=== PATIENT | female | born 1970 | race Caucasian/White ===

== ENCOUNTER 2021-05-25 06:14 | Outpatient (REF) | payer OTHER, SELFPAY ==
[2021-05-25 06:23] LABS: MANUAL DIFF FLAG NO
[2021-05-25 07:50] LABS: Basophils Absolute Auto 0.1 X10*3/uL (0.0-0.2); Basophils Percent Auto 0.6 % (0-2); Eosinophils Absolute Auto 0.1 X10*3/uL (0.0-0.4); Eosinophils Percent Auto 1.2 % (0-4); Hematocrit 44.7 % (37.0-47.0); Hemoglobin 14.3 g/dl (12.0-16.0); Imm Gran Abs Auto 0.07 X10*3/uL (0.00-0.03); Imm Gran Pct Auto 0.8 % (0.0-0.4); Lymphocytes Absolute Auto 3.8 X10*3/uL (1.2-4.9); Lymphocytes Percent Auto 42.4 % (20-40); Mean Corpuscular Hemoglobin 29.1 pg (27.0-33.0); Mean Corpuscular Volume 90.9 fL (80.0-98.0); Mean Platelet Volume 9.8 fL (9.4-12.3); Monocytes Absolute Auto 0.7 X10*3/uL (0.1-1.2); Monocytes Percent Auto 7.3 % (2-11); Neutrophils Absolute Auto 4.3 x10*3/uL (2.0-8.3); Neutrophils Percent Auto 47.7 % (45-73); Platelet Count 320 X10*3/uL (160-400); Red Blood Count 4.92 X10*6/uL (4.20-5.50); Red Cell Distribution Width 13.6 % (11.0-16.0); White Blood Count 8.9 X10*3/uL (4.8-10.8)
[2021-05-25 08:07] LABS: Troponin-I High Sensitivity < 3.5 ng/L (<3.5-17.0)
[2021-05-25 08:34] LABS: Alanine Aminotransferase 33 U/L (0-31); Albumin Level 4.2 g/dL (3.5-5.0); Alkaline Phosphatase 66 U/L (39-117); Anion Gap 14 (12-20); Aspartate Amino Transferase 17 U/L (5-31); Bilirubin Total 0.7 mg/dL (0.0-1.0); Blood Urea Nitrogen 14 mg/dL (9-16); C Reactive Protein 0.38 mg/dL (< or = 0.50); Calcium 9.5 mg/dL (8.4-10.2); Carbon Dioxide 28 mmol/L (22-29); Chloride 104 mmol/L (96-108); Cholesterol 242 mg/dL; Estimated Glomerular Filt Rate > 60; Glucose Fasting 88 mg/dL (60-99); HDL Cholesterol 42 mg/dL; LDL Cholesterol Calculated 163 mg/dl; Potassium 4.4 mmol/L (3.3-5.1); Sodium 142 mmol/L (135-145); Triglycerides 186 mg/dL
[2021-05-25 08:45] LABS: TSH reflex Free T4 3.68 uIU/mL (0.32-4.0); Vitamin D 25-OH Total 27.8 ng/mL (>30)
[2021-05-25 08:55] LABS: Erythrocyte Sedimentation Rate 16 MM/HR (0-20)
[2021-05-25 09:13] LABS: Appearance Urine HAZY; Color Urine YELLOW; Glucose Urine UA NEG (NEG); Leukocyte Esterase Urine 1+ (NEG); Nitrite Urine NEG (NEG); Specific Gravity - Urine 1.025 (1.005-1.025); UACC Culture Trigger YES; Urine Blood NEG (NEG); Urine Ketones NEG (NEG); Urine Protein NEG (NEG-TRACE)
[2021-05-25 09:19] LABS: Rheumatoid Factor < 15.0 IU/mL (<15.0)
[2021-05-25 09:25] LABS: Bacteria Urine 2+ /LPF; RBC Urine 0-2 /HPF (0); Squamous Epithelial Cell Urine 3+ /LPF
[2021-05-26 13:51] LABS: Anti Nuclear Antibody Screen NEGATIVE (NEGATIVE)
[2021-05-28 07:52] LABS: CK-BB None Detected (None Detected); CK-MB 0 % (<5); CK-MM 100 % (95-100); Creatine Kinase,Total,Serum 113 U/L (29-143)
== END 2021-05-25 06:15 | disposition home or self-care (01) ==
LOC: HO.LAB 06:14
PROVIDERS: PCP Internal Medicine; Visit Provider Internal Medicine
DX: Z00.00 Encounter for general adult medical examination without abnormal findings (principal); R07.9 Chest pain, unspecified; M25.50 Pain in unspecified joint; E55.9 Vitamin D deficiency, unspecified; M79.7 Fibromyalgia
CPT/HCPCS: 36415; 80053; 80061; 81001; 81003; 82306; 82552; 84443; 84484; 85025; 85652; 86038; 86039; 86140; 86431; 87086

== ENCOUNTER → 2021-08-30 08:56 | Outpatient (BNVA) | payer OTHER, SELFPAY | PROVIDERS: PCP Internal Medicine; Referring Provider Internal Medicine; Visit Provider Nurse Practitioner Family | DX: R06.83 Snoring (principal); R40.0 Somnolence | CPT/HCPCS: 99202 ==

== ENCOUNTER → 2021-09-21 14:30 | Outpatient (REF) | payer OTHER, SELFPAY | LOC: HO.SL 14:30 | PROVIDERS: PCP Internal Medicine; Visit Provider Nurse Practitioner Family | DX: R06.83 Snoring (principal); R40.0 Somnolence | CPT/HCPCS: 95806 ==

== ENCOUNTER → 2021-11-22 08:24 | Outpatient (BNVA) | payer OTHER, SELFPAY | PROVIDERS: PCP Internal Medicine; Visit Provider Nurse Practitioner Family | DX: G47.9 Sleep disorder, unspecified (principal); R40.0 Somnolence; R06.83 Snoring | CPT/HCPCS: 99212 ==

== ENCOUNTER → 2022-05-30 20:43 | Outpatient (REF) | payer OTHER, SELFPAY | LOC: HO.SL 20:43 | PROVIDERS: Visit Provider Nurse Practitioner Family | DX: G47.33 Obstructive sleep apnea (adult) (pediatric) (principal); R40.0 Somnolence; R06.83 Snoring; G47.61 Periodic limb movement disorder | CPT/HCPCS: 95810 ==

== ENCOUNTER 2022-06-15 08:37 | Outpatient (REF) | payer OTHER, SELFPAY ==
[2022-06-15 08:57] LABS: MANUAL DIFF FLAG NO
[2022-06-15 09:23] LABS: Basophils Percent Auto 0.5 % (0-2); Eosinophils Absolute Auto 0.1 X10*3/uL (0.0-0.4); Eosinophils Percent Auto 1.2 % (0-4); Hematocrit 43.9 % (37.0-47.0); Hemoglobin 14.6 g/dl (12.0-16.0); Imm Gran Abs Auto 0.03 X10*3/uL (0.00-0.03); Imm Gran Pct Auto 0.4 % (0.0-0.4); Lymphocytes Absolute Auto 3.3 X10*3/uL (1.2-4.9); Lymphocytes Percent Auto 39.9 % (20-40); Mean Corpuscular HGB Conc 33.3 g/dl (31.0-35.0); Mean Corpuscular Hemoglobin 29.7 pg (27.0-33.0); Mean Corpuscular Volume 89.4 fL (80.0-98.0); Mean Platelet Volume 9.9 fL (9.4-12.3); Monocytes Absolute Auto 0.6 X10*3/uL (0.1-1.2); Monocytes Percent Auto 7.6 % (2-11); Neutrophils Absolute Auto 4.1 x10*3/uL (2.0-8.3); Neutrophils Percent Auto 50.4 % (45-73); Platelet Count 342 X10*3/uL (160-400); Red Blood Count 4.91 X10*6/uL (4.20-5.50); Red Cell Distribution Width 13.2 % (11.0-16.0); White Blood Count 8.2 X10*3/uL (4.8-10.8)
[2022-06-15 10:05] LABS: Erythrocyte Sedimentation Rate 14 MM/HR (0-20)
[2022-06-15 10:06] LABS: ~HepC Num1 0.06 S/CO (0.00-0.79); ~Hepatitis C Antibody Nonreactive (Nonreactive)
[2022-06-15 10:18] LABS: Alanine Aminotransferase 39 U/L (0-31); Albumin Level 4.3 g/dL (3.5-5.0); Alkaline Phosphatase 66 U/L (39-117); Anion Gap 12 (12-20); Aspartate Amino Transferase 22 U/L (5-31); Bilirubin Total 1.3 mg/dL (0.0-1.0); Blood Urea Nitrogen 11 mg/dL (9-16); C Reactive Protein 0.43 mg/dL (< or = 0.50); Calcium 9.8 mg/dL (8.4-10.2); Carbon Dioxide 27 mmol/L (22-29); Chloride 102 mmol/L (96-108); Cholesterol 230 mg/dL; Estimated Glomerular Filt Rate > 60; Glucose Fasting 104 mg/dL (60-99); HDL Cholesterol 38 mg/dL; LDL Cholesterol Calculated 152 mg/dl; Rheumatoid Factor < 13.0 IU/mL (<15.0); Sodium 137 mmol/L (135-145); TSH reflex Free T4 2.86 uIU/mL (0.32-4.0); Triglycerides 201 mg/dL; Vitamin D 25-OH Total 30.6 ng/mL (>30)
[2022-06-15 10:26] LABS: Folate 12.8 ng/mL (> or = 4.0); Vitamin B12 230 pg/mL (200-900)
[2022-06-15 11:39] LABS: Appearance Urine Clear; Color Urine Yellow; Glucose Urine UA Negative (Negative); Leukocyte Esterase Urine Moderate (2+) (Negative); Nitrite Urine Negative (Negative); PH 5.5 (5.0-9.0); Specific Gravity - Urine 1.015 (1.005-1.025); UMIC TRIGGER UACC YES; Urine Blood Negative (Negative); Urine Ketones Negative (Negative); Urine Protein Negative (Neg-Trace)
[2022-06-15 11:46] LABS: Bacteria Urine 1+ (None Seen); Hyaline Casts Urine 0-2 /LPF (0-2); RBC Urine 0-2 /HPF (0-2); UACC Culture Trigger YES; WBC Urine 21-50 /HPF (0-5)
[2022-06-17 01:22] LABS: Lyme Abs Screen <0.90 index
[2022-06-18 13:28] LABS: Anti Nuclear Antibody Screen NEGATIVE (NEGATIVE)
== END 2022-06-15 08:38 | disposition home or self-care (01) ==
LOC: HO.LAB 08:37
PROVIDERS: PCP Internal Medicine; Visit Provider Internal Medicine
DX: E78.00 Pure hypercholesterolemia, unspecified (principal); M25.50 Pain in unspecified joint; M47.816 Spondylosis without myelopathy or radiculopathy, lumbar region; E55.9 Vitamin D deficiency, unspecified; E53.8 Deficiency of other specified B group vitamins; M79.7 Fibromyalgia; T14.8XXA Other injury of unspecified body region, initial encounter; W57.XXXA Bitten or stung by nonvenomous insect and other nonvenomous arthropods, initial encounter; G89.29 Other chronic pain; I10 Essential (primary) hypertension
CPT/HCPCS: 36415; 80053; 80061; 81001; 82306; 82607; 82746; 84443; 85025; 85652; 86038; 86039; 86140; 86431; 86617; 86618; 86803; 87086

== ENCOUNTER 2022-06-29 11:33 | Outpatient (REF) | payer OTHER, SELFPAY ==
[2022-06-29 12:39] LABS: C Reactive Protein 0.33 mg/dL (< or = 0.50)
[2022-06-29 12:55] LABS: Erythrocyte Sedimentation Rate 14 MM/HR (0-20)
[2022-06-29 13:28] LABS: Appearance Urine Cloudy; Color Urine Yellow; Glucose Urine UA Negative (Negative); Leukocyte Esterase Urine Large (3+) (Negative); Nitrite Urine Negative (Negative); PH 6.5 (5.0-9.0); UMIC TRIGGER UACC YES; Urine Blood Negative (Negative); Urine Ketones Negative (Negative); Urine Protein Negative (Neg-Trace)
[2022-06-29 13:37] LABS: Bacteria Urine 3+ (None Seen); Hyaline Casts Urine 0-2 /LPF (0-2); RBC Urine 0-2 /HPF (0-2); UACC Culture Trigger YES; WBC Urine 21-50 /HPF (0-5)
[2022-06-29 16:35] LABS: CDiff Gene PCR NEGATIVE (Negative)
[2022-06-30 13:05] LABS: Adenovirus F 40/41 Not Detected (Not Detect.); Astrovirus Not Detected (Not Detect.); Campylobacter Not Detected (Not Detect.); Cryptosporidium Not Detected (Not Detect.); Cyclospora cayetanensis Not Detected (Not Detect.); E. coli EAEC Not Detected (Not Detect.); E. coli EPEC Not Detected (Not Detect.); E. coli ETEC Not Detected (Not Detect.); E. coli STEC Not Detected (Not Detect.); Entamoeba histolytica Not Detected (Not Detect.); Giardia lamblia Not Detected (Not Detect.); Norovirus GI/GII Not Detected (Not Detect.); Plesiomonas shigelloides Not Detected (Not Detect.); Rotavirus A Not Detected (Not Detect.); Salmonella Not Detected (Not Detect.); Sapovirus Not Detected (Not Detect.); Shigella sp./EIEC Not Detected (Not Detect.); Vibrio Not Detected (Not Detect.); Vibrio Cholerae Not Detected (Not Detect.); Yersinia enterocolitica Not Detected (Not Detect.)
[2022-07-03 13:47] LABS: Transglutaminase IgA <1.0 U/mL
[2022-07-05 21:48] LABS: Calprotectin, Fecal 44 mcg/g
[2022-07-06 15:04] LABS: Endomysial IgA Antibody Negative (Negative)
== END 2022-06-29 11:34 | disposition home or self-care (01) ==
LOC: HO.LAB 11:33
PROVIDERS: PCP Internal Medicine; Visit Provider Physician Assistant
DX: Z01.818 Encounter for other preprocedural examination (principal); K21.9 Gastro-esophageal reflux disease without esophagitis; K52.9 Noninfective gastroenteritis and colitis, unspecified; R17 Unspecified jaundice; R30.0 Dysuria; M47.816 Spondylosis without myelopathy or radiculopathy, lumbar region; M25.50 Pain in unspecified joint
CPT/HCPCS: 36415; 81001; 83993; 85652; 86140; 86231; 86364; 87086; 87493; 87507; 99202; 99212

== ENCOUNTER → 2022-09-18 08:47 | Outpatient (REF) | payer OTHER, SELFPAY ==
--- NOTE | ~2022-09-18 | NM_ITS ---
Myocardial perfusion study Indication: Chest pain to evaluate for myocardial ischemia Technique: The patient was brought in for a Lexiscan perfusion study on 09/18/2022. Patient performed low-level exercise and was injected 0.4 mg of Lexiscan intravenously. Within a minute of injection, 40 mCi of sestamibi was given intravenously. Images were obtained using the SPECT gamma camera interlaced with the gating device. Images were obtained in supine position. Resting perfusion study was performed on 09/20/2022. Patient was administered 40 mCi of sestamibi intravenously at rest. Images were then obtained in supine position. Images obtained with and without CT attenuation. Total DLP 177 mGy-cm. Images were processed with the software and compared side to side in short axis, horizontal long axis and vertical long axis views. Findings: The stress perfusion study showed both attenuated as well as non attenuated corrected images show normal uptake of radiotracer in all segments of LV myocardium.. The gated study shows normal LV systolic function with calculated LVEF of 56%. LV cavity is normal in size. The gated study shows normal systolic wall thickening and contraction of segments. Resting study shows non attenuated images show normal uptake of radiotracer in all segments of LV myocardium. Gating at rest reveals normal systolic wall motion with ejection fraction at 55%. The findings are consistent with normal myocardial perfusion. NM/NM cardiolite stress test Impression: 1. Myocardial perfusion imaging study shows normal myocardial perfusion 2. Gated LVEF is 56% 3. Transient ischemic dilatation not present EKG is nondiagnostic for ischemia
--- NOTE | 2022-09-18 08:50 | CA_ITS ---
Acquisition Time: 2022-09-18 08:57:49 Total Exercise Time: 00:02:00 Test Indications: CP, FATIGUE Medications: SEE H Protocol: LEXISCAN Max HR: 137 BPM 81% of Pred: 168 BPM Max BP: 128/090 mmHG Max Work Load: 1.6 METS Pharmacological stress test with Lexiscan injection, while walking slow on treadmill, without anginal symptoms, wihtout arrythmia, with normotensive response to injection, with nondiagnostic EKG for ischemia. Nuclear images pending. Test reviewed with Dr Cmobs. Referred By: Abhay Peralta Overread By: ABHIJIT ALVARADO
== END ==
LOC: HO.CARD 08:47
PROVIDERS: Visit Provider Internal Medicine
DX: R07.9 Chest pain, unspecified (principal)
CPT/HCPCS: 78452; 93017; A9500; J0280; J2785

== ENCOUNTER 2023-02-20 13:00 | Day surgery (SDC) | payer OTHER, SELFPAY ==
[2023-02-20 13:12] VITALS: BMI 40.7
[2023-02-20 13:16] VITALS: BP 124/67; PULSE 83; RESP 18; TEMP 36.3; O2SAT 100
[2023-02-20] MEDS: Lactated Ringers 1,000 ML 100 ML IVCONT (13:21)
--- NOTE | 2023-02-20 14:01 | MHC.SHP ---
Pre-Procedural Eval Section A Date of Service: 02/20/23 The patient is an INPATIENT: No The History & Physical has been completed within 30 days and I have reviewed it.: No Section B Chief Complaint: screening, chronic diarrhea Relevant Family History (Specify if Yes): Yes Relevant Social History: Tobacco Use Present Medications: see Short Stay Collaborative assessment Medical History: Significant History (Anxiety GERD (gastroesophageal reflux disease) Insomnia Lumbar spondylosis Mixed hyperlipidemia Morbid obesity with BMI of 40.0-44.9, adult) History of Previous Operations: No relevant previous surgery Allergies: Allergies Allergy/AdvReac Type Severity Reaction Status Date / Time No Known Allergies Allergy Verified 11/07/22 15:47 Review of Systems Sugical H&P ROS: Negative: Constitution, Cardiovascular, Respiratory and Gastrointestinal Exam Surgical H&P Exam: Normal: Heart, Normal: Lungs, Normal: Extremities and Normal: Abdomen Plan Diagnosis/Plan: Unchanged I have reviewed the history and physical and performed a pertinent physical examination on my patient. No changes have occurred unless specified. Time Spent With Patient Time: Total time managing care of this patient today ____ minutes.
--- NOTE | 2023-02-20 14:51 | W.PM.OPN ---
Operative Note Operative Note Date of Service: 02/20/23 Narrative: COLONOSCOPY TILL CECUM WITH BIOPSIES, SNARE POLYPECTOMY, SUBMUCOSAL INJECTION AND HEMOCLIP PLACEMENT Pre-op diagnosis: Colon cancer screening, family history of colon cancer (GM in her 70's) and polyps (brother had a colon resection for a large polyp in his early 50's) Post-op diagnosis:? Colon polyps, diverticulosis, hemorrhoids Endoscopist:? Bulmaro Soares MD Anesthesia:?MAC Consent: Indications for the procedure and potential complications of bleeding, perforation, reaction to medications and missed diagnosis were discussed with the patient and informed consent was obtained. Instrument: Olympus PCF H 190 L variable stiffness pediatric colonoscope Monitoring: Vital signs and clinical assessment, intermittent blood pressure monitoring, continuous EKG monitoring, Pulse oximetry and Carbon Dioxide monitoring were done throughout the procedure. Please see anesthesia flowsheet. Colon withdrawl time was 41 minutes. Procedure: The patient was placed in the left lateral decubitis position and pre-procedure medications were administered. After a digital rectal examination of the ano-rectum, the video colonoscope was inserted into the rectum and advanced through the colon to the cecum. The colonoscope was slowly withdrawn in a retrograde panoramic fashion and the colon mucosa was carefully examined including a retroflexed view of the rectum. Findings and interventions are described below. Procedure Difficulty: Colon was long and tortuous and there was some loop formation. LLQ pressure was applied to intubate the cecum Findings: Terminal Ileum: Not evaluated Cecum: A 5-6 mm sessile polyp adjacent to the appendicular orifice - removed with a cold bx. A 10-12 mm sessile polyp within the appendicular orifice - raised with 3 cc of normal saline and removed with a hot snare Ascending Colon: A 15 mm sessile polyp in the distal ascending colon removed with a hot snare. Transverse Colon: A 15 to 18 mm sessile polyp - removed with a hot snare. A 2.5 to 3 cms sessile polyp in the distal tranverse colon at 110 cms. Polyp was removed with a hot snare. Polypectomy site was closed with 2 hemoclips and marked by [place] ink. Descending Colon: A 3 cms benign appearing yellowish nodule at 90 cms (likely a submucosal lipoma) - biopsies were obtained. Sigmoid Colon: A 2 cms sessile polyp at 50 cms - removed with a hot snare. A 2.5 to 3 cms sessile polyp at 40 cms - removed with a hot snare. Polypectomy site was closed with 1 hemoclip and marked by [place] ink. Moderate diverticulosis Rectum: Three 12-15 mm sessile polyps at 10 cms - removed with a hot snare. Ano-rectum: Moderate internal hemorrhoids Colon preparation: Good after some irrigation Impression and Post Procedure Diagnosis: Colonoscopy Findings: Nine medium to large sized and one small polyps removed Moderate diverticulosis seen in the sigmoid colon Moderate hemorrhoids on retroflexed exam. Plan: Await pathology results Patient has an appointment on 04/02/23 in the GI Clinic with ANNEL Melton . Repeat Colonoscopy interval based on path results - in 6 to 12 months if polyps are adenomatous and 5 years if polyps are hyperplastic (due to positive family history). Adult colonoscopy for future colonoscopies, Above findings were reviewed with the patient and colon polyps and diverticulosis handouts were given in the discharge area BIOPSIES RESULTS: A: cecal polyp: Colonic mucosa with mild hyperplastic changes; negative for adenomatous dysplasia.? B: ascending colon polyp Tubular adenoma; negative for high-grade dysplasia and carcinoma. C: transverse colon polyp: Tubular adenoma; negative for high-grade dysplasia and carcinoma.? D: colon polyp at 110 - Tubular adenoma; negative for high-grade dysplasia and carcinoma. E: nodules bxs at 90 cm - Colonic mucosa with minor crypt distortion, otherwise no specific change; no gait of for adenomatous dysplasia.? F: sigmoid colon polyp at 50 - Tubulovillous adenoma, likely excised; negative for high-grade dysplasia and carcinoma.? G: sigmoid colon polyp at 40 - Tubular adenoma with serrated features, appears excised; negative for high-grade dysplasia and carcinoma. H: rectal polyp x 3 - Hyperplastic polyps, three.
[2023-02-20 16:18] VITALS: BP 135/90; PULSE 62; RESP 16; TEMP 36.6; O2SAT 99
[2023-02-20 16:33] VITALS: BP 156/88; PULSE 68; RESP 14; TEMP 36.6; O2SAT 99
== END 2023-02-20 16:48 | disposition home or self-care (01) ==
PROVIDERS: PCP Internal Medicine; Visit Provider Internal Medicine Gastroenterology
PROC: 0DJD8ZZ Inspection of Lower Intestinal Tract, Via Natural or Artificial Opening Endoscopic (ICD-10-PCS; CPT 45378; principal; 2023-02-20 14:30)
DX: Z12.11 Encounter for screening for malignant neoplasm of colon (principal); D12.2 Benign neoplasm of ascending colon; D12.3 Benign neoplasm of transverse colon; D12.5 Benign neoplasm of sigmoid colon; K62.1 Rectal polyp; Z83.71 Family history of colonic polyps; K57.30 Diverticulosis of large intestine without perforation or abscess without bleeding; K64.8 Other hemorrhoids; K52.9 Noninfective gastroenteritis and colitis, unspecified; K21.9 Gastro-esophageal reflux disease without esophagitis; R17 Unspecified jaundice; E78.2 Mixed hyperlipidemia; E66.9 Obesity, unspecified; Z68.41 Body mass index [BMI] 40.0-44.9, adult; Z87.891 Personal history of nicotine dependence
CPT/HCPCS: 45385; 45380; 45381; 88305

== ENCOUNTER → 2023-02-20 13:00 | Outpatient (BNV) | payer OTHER, SELFPAY | PROVIDERS: PCP Internal Medicine; Visit Provider Internal Medicine Gastroenterology | DX: Z12.11 Encounter for screening for malignant neoplasm of colon (principal); Z80.0 Family history of malignant neoplasm of digestive organs; K57.30 Diverticulosis of large intestine without perforation or abscess without bleeding; K64.8 Other hemorrhoids; D12.0 Benign neoplasm of cecum; D12.2 Benign neoplasm of ascending colon; D12.3 Benign neoplasm of transverse colon; D12.5 Benign neoplasm of sigmoid colon; D12.8 Benign neoplasm of rectum; D12.4 Benign neoplasm of descending colon | CPT/HCPCS: 45380; 45381; 45385 ==

== ENCOUNTER 2023-03-26 17:03 | Outpatient (AMB) | payer OTHER, SELFPAY ==
[2023-03-26 17:06] VITALS: BP 124/62; PULSE 73; O2SAT 98; BMI 39.9
--- NOTE | 2023-03-26 17:06 | MHC.PC.OV ---
Vital Signs 03/26/23 17:06 Height 5 ft 7 in Weight 255 lb BMI 39.9 BP 124/62 Blood Pressure Location Lt brachial Position Sitting Pulse 73 Pulse Source Pulse Oximeter Pulse Oximetry (%) 98 Oxygen Delivery Method Room Air Intake Visit Reasons: hyperlipidemia, chronic arm pain, GERD, fatigue Allergies No Known Allergies Allergy (Verified 03/26/23 17:43) Medication List - Last Reconciled 03/26/23 by Abhay Peralta MD buspirone 30 mg PO BID clonidine HCl 0.3 mg PO BEDTIME clotrimazole 1% 1 appl topical QAM AND QHS escitalopram oxalate 20 mg PO QAM escitalopram oxalate 5 mg PO DAILY ibuprofen 800 mg PO TID PRN methylcellulose (laxative) (Citrucel) 500 mg PO TID metoprolol succinate ER 25 mg PO DAILY prazosin 1 mg PO DAILY PRN quetiapine 25 mg PO BEDTIME tramadol 50 mg PO TID PRN 10 days zolpidem 1.75 mg sublingual BEDTIME Tobacco use date assessed: 11/07/22 Dental Screening Dental Screen Date: 03/26/23 Did you have a dental visit in the last 12 months?: Yes Did you have a dental problem in the last 6 months where you did not have access to dental care?: No Was dental information given to patient?: Patient has dentist HPI hyperlipidemia, chronic arm pain, GERD, fatigue HPI Details Patient comes in today for her follow up visit States that she has been experiencing on and off RUQ abdominal pain for the past couple of months Feels that her symptoms are worse when she eats something Also relates (+) nausea at times when her symptoms act up but denies any vomiting She denies any headaches or dizziness Denies any chest pains, no SOB No change in bowel habits noted Had her colonoscopy done by Dr. Soares last month - (+) tubular adenomas, diverticulosis and hemorrhoids; recommend repeat colonoscopy in 6 to 12 months She will be due for her yearly mammogram (done at [facility]) in a couple of months States that she is also due for her yearly pap and vice president of contracts exam and will be contacting her sample worker's office to schedule an appt [facility] Medical History (Updated 03/26/23 @ 18:12 by Abhay Peralta MD) Obesity (BMI 30-39.9) GERD (gastroesophageal reflux disease) Anxiety Insomnia Lumbar spondylosis Mixed hyperlipidemia Morbid obesity with BMI of 40.0-44.9, adult Surgical History No pertinent past surgical history Social History Housing: Apartment Alcohol intake: never Patient Tobacco Use Status: Former Tobacco user Tobacco use type: Smokeless Tobacco e-Cigarette/Vaping Use: Currently Using Second Hand Smoke Exposure: Yes service: No Current occupational status: disabled Cognitive needs: No Hearing needs: No Vision needs: Yes Questionnaire Thrive Questionnaire Date Thrive assessed: 11/07/22 AUDIT C Alcohol Use Questionnaire (AUDIT-C) 1. How often do you have a drink containing alcohol?: Never 3. How often do you have six or more drinks on one occasion?: Never Total Score: 0 Score Reviewed/Action Taken: Yes LUBNA-7 AMB Questionnaire LUBNA-7 Date LUBNA - 7 assessed: 11/07/22 Source: Developed by Drs. Marquis Seals, Rosa Paulino, Ronan Olivo and colleagues, with an educational marla from [employer]. Review of Systems Const Denies chills, Denies fatigue, Denies fever(s) and Denies headache(s) ENT Denies dysphagia, Denies dizziness, Denies otalgia, Denies headache(s), Denies odynophagia and Denies sore throat Card Denies chest pain, Denies palpitations and Denies dyspnea Resp Denies cough and Denies dyspnea GI Denies abdominal pain, Denies constipation, Denies dysphagia, Denies heartburn, Denies diarrhea, Denies nausea, Denies odynophagia and Denies vomiting Denies difficulty voiding, Denies nocturia and Denies dysuria Musc Reports back pain (over the lower back - chronic) and Reports arthralgias (on and off over several joints but especially over her hands/fingers) Skin/Breast Denies rash Neuro Denies dizziness and Denies headache(s) Endo Denies fatigue and Denies palpitations Physical exam (Primary Care) Vital Signs: Last Vital Signs Pulse 73 03/26/23 17:06 BP 124/62 03/26/23 17:06 Pulse Ox 98 03/26/23 17:06 Oxygen Delivery Method Room Air 03/26/23 17:06 BMI result Body Mass Index 39.9 Tobacco/Smoking Status: Tobacco use Status Tobacco use date assessed 11/07/22 03/26/23 17:10 Patient Tobacco Use Status Former Tobacco user 03/26/23 17:10 Tobacco use type Smokeless Tobacco 03/26/23 17:10 e-Cigarette/Vaping Use Currently Using 03/26/23 17:10 Thrive Assessment: Date of Thrive Assessment Date Thrive assessed 11/07/22 03/26/23 17:10 Const General: no acute distress and alert HENMT Ears: TM's normal bilaterally and EAC's normal Throat: Yes posterior oropharynx normal and Yes tonsils normal Neck Neck: Yes no lymphadenopathy and Yes supple Resp Auscultation: clear to auscultation bilaterally, no rales and no wheezes Cardio Rate: regular rate Rhythm: regular rhythm Heart sounds: no murmurs GI Palpation (GI): Soft to palpation, Tenderness to palpation present (GI) (mild) in the RUQ, no guarding, not rigid and No Rebound tenderness present Auscultation: normal bowel sounds Back/Spine/Pelvis Thoracic/Lumbar Spine: lumbar spinal tenderness Skin Rashes: no rashes Extrem Other: (+) mild tenderness on palpation over the flexor carpi radialis muscle of the right forearm; no tenderness is noted on exam of the right elbow and wrist; Tinel's and Phalen's signs were negative General: Yes no clubbing, cyanosis or edema Assessment and Plan Assessment & Plan (1) Mixed hyperlipidemia: Code(s): E78.2 - Mixed hyperlipidemia Plan: Has not had any follow up labs done since June 2022 - is reminded that her most recent fasting lipids done on 06/15/2022 revealed a total cholesterol level of 230 mg/dl, TG of 201 mg/dl and LDL cholesterol of 152 mg/dl, all of which are significantly elevated and she should try to get these rechecked ANDREA (labs ordered) Reinforced low-cholesterol diet Has been recommended to start pharmacotherapy for her high cholesterol a few times in the past but patient prefers to continue with diet modification alone (2) Chest pain: Code(s): R07.9 - Chest pain, unspecified Qualifiers: Chest pain type: unspecified Qualified Code(s): R07.9 - Chest pain, unspecified Plan: Stress testing done in September 2022 came out negative/normal; myocardial perfusion imaging study shows normal myocardial perfusion. Gated LVEF is 56% She was started on Metoprolol ER 25 mg QD - states that her chest pains have improved a lot since she started taking Metoprolol ER (3) Elevated blood pressure reading: Code(s): R03.0 - Elevated blood-pressure reading, without diagnosis of hypertension Plan: Reinforced low sodium diet Her BP appears much better today Continue Metoprolol ER 25 mg QD Patient is reminded to continue monitoring her blood pressure regularly - goal is systolic BP of 120 mm or less (4) GERD (gastroesophageal reflux disease): Comment: rare reflux Code(s): K21.9 - Gastro-esophageal reflux disease without esophagitis Qualifiers: Esophagitis presence: without esophagitis Qualified Code(s): K21.9 - Gastro-esophageal reflux disease without esophagitis Plan: Dietary restrictions reinforced Continue Omeprazole 20 mg QD (5) RUQ abdominal pain: Code(s): R10.11 - Right upper quadrant pain Plan: Advised that her recent abdominal symptoms are suggestive of some gall bladder issues Will send her for abdominal US for further evaluation (6) Chronic fatigue: Code(s): R53.82 - Chronic fatigue, unspecified Plan: Has been seeing and following up with Wellness Medicine at [facility] for her chronic fatigue Was also seeing Sleep Medicine recently and undergoing work ups for possible JESUS ALBERTO (7) Lumbar spondylosis: Code(s): M47.816 - Spondylosis without myelopathy or radiculopathy, lumbar region Plan: Reinforced activity and weight lifting restrictions Continue Tramadol 50 mg TID PRN and Ibuprofen 800 mg TID with food PRN for pain (8) Arthralgia: Code(s): M25.50 - Pain in unspecified joint Qualifiers: Joint pain location: unspecified Qualified Code(s): M25.50 - Pain in unspecified joint Plan: Was referred to rheumatology for her joint pains last year but states that she missed her appointment a few months ago and was never able to reschedule Will redo referral to rheumatology (9) Insomnia: Code(s): G47.00 - Insomnia, unspecified Qualifiers: Insomnia type: unspecified Qualified Code(s): G47.00 - Insomnia, unspecified Plan: Sleep hygiene reinforced Continue Zolpidem 5 mg Q HS PRN and Prazosin 1 mg Q HS Is following up with psychiatry for this as well (10) Anxiety: Code(s): F41.9 - Anxiety disorder, unspecified Plan: Continue Buspirone 30 mg BID, Clonidine 0.3 mg Q HS and Escitalopram 25 mg QD Follow up with psychiatry as scheduled (11) Obesity (BMI 30-39.9): Code(s): E66.9 - Obesity, unspecified Plan: Reinforced diet/exercise as tolerated/lose weight - was able to lose a few pounds since her last visit Plan Follow up in 4 months Orders: Orders Lipid Panel Today E78.00 - Pure hypercholesterolemia, unspecified TSH reflex Free T4 Today E78.00 - Pure hypercholesterolemia, unspecified Vitamin D 25-OH Total Today E55.9 - Vitamin D deficiency, unspecified C Reactive Protein Today M25.50 - Pain in unspecified joint Erythrocyte Sedimentation Rate Today M79.7 - Fibromyalgia US abdomen complete Today R10.11 - Right upper quadrant pain Complete Blood Count Auto Diff Today I10 - Essential (primary) hypertension Comprehensive [place]. Panel Fast Today E78.00 - Pure hypercholesterolemia, unspecified UA CC w/rflx Micro + Cult Today R30.0 - Dysuria Referrals Rheumatology Referral M25.50 - Pain in unspecified joint Coding Level of Care Code Est Pt Level 4 (99267) Diagnoses Mixed hyperlipidemia E78.2 Chest pain, unspecified type R07.9 Chest pain type: unspecified Elevated blood pressure reading R03.0 Gastroesophageal reflux disease without esophagitis K21.9 Esophagitis presence: without esophagitis RUQ abdominal pain R10.11 Chronic fatigue R53.82 Lumbar spondylosis M47.816 Arthralgia, unspecified joint M25.50 Joint pain location: unspecified Insomnia, unspecified type G47.00 Insomnia type: unspecified Anxiety F41.9 Obesity (BMI 30-39.9) E66.9
== END 2023-03-26 17:40 | disposition home or self-care (01) ==
PROVIDERS: PCP Internal Medicine; Visit Provider Internal Medicine
DX: E78.2 Mixed hyperlipidemia (principal); K21.9 Gastro-esophageal reflux disease without esophagitis; F41.9 Anxiety disorder, unspecified; R07.9 Chest pain, unspecified; R03.0 Elevated blood-pressure reading, without diagnosis of hypertension; R10.11 Right upper quadrant pain; R53.82 Chronic fatigue, unspecified; M47.816 Spondylosis without myelopathy or radiculopathy, lumbar region; M25.50 Pain in unspecified joint; G47.00 Insomnia, unspecified; E66.9 Obesity, unspecified
CPT/HCPCS: 99214

== ENCOUNTER 2023-04-02 06:48 | Outpatient (REF) | payer OTHER, SELFPAY ==
--- NOTE | ~2023-04-02 | US_ITS ---
EXAMINATION: US ABDOMEN COMPLETE CLINICAL INFORMATION: Right upper quadrant pain. COMPARISON: X-ray abdomen 11/04/2019. TECHNIQUE: Real-time imaging of the abdominal viscera. FINDINGS: PANCREAS: Normal head and body, the tail is obscured by bowel gas. ABDOMINAL AORTA: The proximal, mid, and distal segments are normal in caliber. INFERIOR VENA CAVA: Visualized portions are normal. LIVER: The liver is normal in size. The liver contour is normal. There is diffuse increased liver parenchymal echogenicity, consistent with hepatic steatosis. No focal hepatic lesion. There is no intrahepatic biliary duct dilatation seen. GALLBLADDER: The gallbladder is physiologically distended. Multiple mobile gallstones are present. No evidence of gallbladder wall thickening or pericholecystic fluid. Mural foci with ringdown artifact is consistent with adenomyomatosis. COMMON BILE DUCT: Normal in caliber measuring 0.2 cm in diameter. RIGHT KIDNEY: Normal. No hydronephrosis. No renal calculi or focal parenchymal lesions. The kidney measures 10.4 cm in maximum dimension. LEFT KIDNEY: Normal. No hydronephrosis. No renal calculi or focal parenchymal lesions. The kidney measures 11.3 cm in maximum dimension. SPLEEN: Normal. The spleen measures 9.8 cm in maximum dimension. FREE FLUID: None. US/US abdomen complete IMPRESSION: 1. Hepatic steatosis. 2. Cholelithiasis. 3. Adenomyomatosis of the gallbladder.
[2023-04-02 07:09] LABS: MANUAL DIFF FLAG NO
[2023-04-02 07:36] LABS: Basophils Absolute Auto 0.1 X10*3/uL (0.0-0.2); Basophils Percent Auto 0.6 % (0-2); Eosinophils Absolute Auto 0.1 X10*3/uL (0.0-0.4); Eosinophils Percent Auto 1.2 % (0-4); Hemoglobin 14.7 g/dl (12.0-16.0); Imm Gran Abs Auto 0.04 X10*3/uL (0.00-0.03); Imm Gran Pct Auto 0.4 % (0.0-0.4); Lymphocytes Absolute Auto 4.7 X10*3/uL (1.2-4.9); Lymphocytes Percent Auto 46.3 % (20-40); Mean Corpuscular HGB Conc 33.4 g/dl (31.0-35.0); Mean Corpuscular Hemoglobin 29.8 pg (27.0-33.0); Mean Corpuscular Volume 89.1 fL (80.0-98.0); Mean Platelet Volume 9.9 fL (9.4-12.3); Monocytes Absolute Auto 0.7 X10*3/uL (0.1-1.2); Monocytes Percent Auto 7.3 % (2-11); Neutrophils Absolute Auto 4.5 x10*3/uL (2.0-8.3); Neutrophils Percent Auto 44.2 % (45-73); Platelet Count 338 X10*3/uL (160-400); Red Blood Count 4.94 X10*6/uL (4.20-5.50); Red Cell Distribution Width 13.4 % (11.0-16.0); White Blood Count 10.2 X10*3/uL (4.8-10.8)
[2023-04-02 08:25] LABS: Erythrocyte Sedimentation Rate 23 MM/HR (0-20)
[2023-04-02 09:01] LABS: Alanine Aminotransferase 28 U/L (0-31); Albumin Level 4.2 g/dL (3.5-5.0); Alkaline Phosphatase 71 U/L (39-117); Anion Gap 11 (12-20); Aspartate Amino Transferase 16 U/L (5-31); Bilirubin Total 0.7 mg/dL (0.0-1.0); Blood Urea Nitrogen 13 mg/dL (9-16); C Reactive Protein 0.47 mg/dL (< or = 0.50); Calcium 9.5 mg/dL (8.4-10.2); Carbon Dioxide 27 mmol/L (22-29); Chloride 107 mmol/L (96-108); Cholesterol 224 mg/dL (<200); Estimated Glomerular Filt Rate 59; Glucose Fasting 89 mg/dL (60-99); HDL Cholesterol 41 mg/dL (>40); LDL Cholesterol Calculated 159 mg/dL (<100); Sodium 141 mmol/L (135-145); Total Protein 7.4 g/dL (6.5-8.0); Triglycerides 123 mg/dL (<150)
[2023-04-02 09:04] LABS: TSH reflex Free T4 4.16 uIU/mL (0.32-4.0); Vitamin D 25-OH Total 40.5 ng/mL (>30)
[2023-04-02 09:21] LABS: Appearance Urine Cloudy; Color Urine Yellow; Glucose Urine UA Negative (Negative); Leukocyte Esterase Urine Moderate (2+) (Negative); Nitrite Urine Negative (Negative); Specific Gravity - Urine 1.015 (1.005-1.025); UMIC TRIGGER UACC YES; Urine Blood Negative (Negative); Urine Ketones Negative (Negative); Urine Protein Negative (Neg-Trace)
[2023-04-02 09:51] LABS: Bacteria Urine 4+ (None Seen); Granular Casts Urine Present; Hyaline Casts Urine >20 /LPF (0-2); RBC Urine 0-2 /HPF (0-2); UACC Culture Trigger YES; WBC Urine 21-50 /HPF (0-5)
[2023-04-02 10:48] LABS: Free T4 (Free Thyroxine) 0.78 ng/dL (0.71-1.85)
== END 2023-04-02 06:49 | disposition home or self-care (01) ==
LOC: HO.US 06:48
PROVIDERS: PCP Internal Medicine; Visit Provider Internal Medicine
DX: R10.11 Right upper quadrant pain (principal); E78.00 Pure hypercholesterolemia, unspecified; M79.7 Fibromyalgia; E55.9 Vitamin D deficiency, unspecified; I10 Essential (primary) hypertension; M25.50 Pain in unspecified joint; R30.0 Dysuria
CPT/HCPCS: 36415; 76700; 80053; 80061; 81001; 81003; 82306; 84439; 84443; 85025; 85652; 86140; 87086

== ENCOUNTER 2023-04-16 11:54 | Outpatient (AMB) | payer OTHER, SELFPAY ==
[2023-04-16 11:59] VITALS: BP 118/63; PULSE 94; BMI 40.7
--- NOTE | 2023-04-16 11:59 | A.OFFVIS_ITS ---
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 She had declined EGD at that time Diarrhea subsided She presents, procedure went well she has no complaints Appetite is good bowels are okay Reviewed procedure report, pathology and recommendation Review blood work from 07/06, C diff negative- as well as recent blood work 03/2023-elevated lipid panel No nausea, vomiting, abdominal pain, hematemesis hematochezia fever chills [facility] Medical History (Updated 04/18/23 @ 11:07 by Zaria Trujillo PA-C) Obesity (BMI 30-39.9) GERD (gastroesophageal reflux disease) Anxiety Insomnia Lumbar spondylosis Mixed hyperlipidemia Morbid obesity with BMI of 40.0-44.9, adult Surgical History Hx of colonoscopy No pertinent past surgical history Social History Housing: Apartment Alcohol intake: never Patient Tobacco Use Status: Former Tobacco user Tobacco use type: Smokeless Tobacco e-Cigarette/Vaping Use: Currently Using Second Hand Smoke Exposure: Yes service: No Current occupational status: disabled Cognitive needs: No Hearing needs: No Vision needs: Yes Review of Systems Const All systems reviewed & are unremarkable except as noted in HPI and below Card Denies chest pain and Denies dyspnea Resp Denies dyspnea GI Denies abdominal pain, Denies diarrhea, Denies nausea and Denies vomiting Physical Exam Vital Signs: Last Vital Signs Pulse 94 04/16/23 11:59 BP 118/63 04/16/23 11:59 BMI result Body Mass Index 40.7 Eyes Conjunctivae: conjunctivae normal Resp Effort & Inspection: normal respiratory effort and able to speak in complete sentences Skin General skin exam: no rashes or lesions noted Extrem General: Yes full ROM Psych Appearance: grossly normal and well kempt Mental Status: mental status grossly normal Speech and movement: Normal speech and movement present Affect: normal affect Attitude: cooperative Thought process: Normal thought process present Thought content: Normal thought content present Insight: Good insight present (Psych) Judgement: Good judgement present (Psych) Results Reviewed Results Reviewed: Impression and Post Procedure Diagnosis: Colonoscopy Findings: Nine medium to large sized and one small polyps removed Moderate diverticulosis seen in the sigmoid colon Moderate hemorrhoids on retroflexed exam. Plan: Await pathology results Patient has an appointment on 04/02/23 in the [facility] with ANNEL Melton . Repeat Colonoscopy interval based on path results - in 6 to 12 months if polyps are adenomatous and 5 years if polyps are hyperplastic (due to positive family history). Adult colonoscopy for future colonoscopies, Above findings were reviewed with the patient and colon polyps and diverticulosis handouts were given in the discharge area BIOPSIES RESULTS: A: cecal polyp: Colonic mucosa with mild hyperplastic changes; negative for adenomatous dysplasia.? B: ascending colon polyp Tubular adenoma; negative for high-grade dysplasia and carcinoma. C: transverse colon polyp: Tubular adenoma; negative for high-grade dysplasia and carcinoma.? D: colon polyp at 110 - Tubular adenoma; negative for high-grade dysplasia and carcinoma. E: nodules bxs at 90 cm - Colonic mucosa with minor crypt distortion, otherwise no specific change; no gait of for adenomatous dysplasia.? F: sigmoid colon polyp at 50 - Tubulovillous adenoma, likely excised; negative for high-grade dysplasia and carcinoma.? G: sigmoid colon polyp at 40 - Tubular adenoma with serrated features, appears excised; negative for high-grade dysplasia and carcinoma. H: rectal polyp x 3 - Hyperplastic polyps, three. Affect repeat colonoscopy 6-12 months Has f/u with pcp- US/US abdomen complete IMPRESSION: 1. Hepatic steatosis. 2. Cholelithiasis. 3. Adenomyomatosis of the gallbladder. Assessment & Plan Assessment & Plan (1) Tubulovillous adenoma: Comment: Index colonoscopy-multiple polyps Recommend repeat colonoscopy 6-12 months patient prefers 12 months, will see her back in 9 months Code(s): D36.9 - Benign neoplasm, unspecified site Plan: Repeat colonoscopy 6-12 months All first-degree relatives begin screening at age 40 (2) Tubular adenoma: Code(s): D36.9 - Benign neoplasm, unspecified site Plan: Repeat 6-12 months (3) Hyperplastic colon polyp: Code(s): K63.5 - Polyp of colon (4) Diverticulosis: Code(s): K57.90 - Diverticulosis of intestine, part unspecified, without perforation or abscess without bleeding Plan: Maintain high-fiber diet ER protocol review (5) Hemorrhoids: Code(s): K64.9 - Unspecified hemorrhoids Plan: High-fiber diet Avoid straining Plan Repeat colonoscopy 6-12 months All first-degree relatives begin screening at age 40 Maintain high-fiber diet Avoid straining with hemorrhoids Diverticulosis/diverticulitis ER protocol Encouraged to call questions or concerns Appreciate the opportunity assist in the care the patient Patient Instructions: Repeat colonoscopy 6-12 months All first-degree relatives begin screening at age 40 Coding Level of Care Code Est Pt Level 3 (90948) Diagnoses Tubulovillous adenoma D36.9 Tubular adenoma D36.9 Hyperplastic colon polyp K63.5 Diverticulosis K57.90 Hemorrhoids K64.9 Time Spent (min) 30
== END 2023-04-16 13:52 | disposition home or self-care (01) ==
PROVIDERS: PCP Internal Medicine; Visit Provider Physician Assistant
DX: D36.9 Benign neoplasm, unspecified site (principal); K63.5 Polyp of colon; K57.90 Diverticulosis of intestine, part unspecified, without perforation or abscess without bleeding; K64.9 Unspecified hemorrhoids
CPT/HCPCS: 99213

== ENCOUNTER → 2023-04-16 11:54 | Outpatient (BNVA) | payer OTHER, SELFPAY | PROVIDERS: PCP Internal Medicine; Visit Provider Physician Assistant | DX: D36.9 Benign neoplasm, unspecified site (principal); K63.5 Polyp of colon; K57.90 Diverticulosis of intestine, part unspecified, without perforation or abscess without bleeding; K64.9 Unspecified hemorrhoids | CPT/HCPCS: 99212 ==

== ENCOUNTER 2023-05-16 12:38 | Outpatient (AMB) | payer OTHER, SELFPAY ==
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
[2023-05-16 12:56] VITALS: BP 128/82; PULSE 102; O2SAT 97; BMI 40.0
== END 2023-05-16 13:44 | disposition home or self-care (01) ==
PROVIDERS: PCP Internal Medicine; Visit Provider Internal Medicine
DX: S16.1XXA Strain of muscle, fascia and tendon at neck level, initial encounter (principal); S29.019A Strain of muscle and tendon of unspecified wall of thorax, initial encounter; V89.2XXA Person injured in unspecified motor-vehicle accident, traffic, initial encounter; Z04.3 Encounter for examination and observation following other accident
CPT/HCPCS: 99213

== ENCOUNTER 2023-11-27 16:24 | Outpatient (AMB) | payer OTHER, SELFPAY ==
[2023-11-27 16:30] VITALS: BP 130/78; PULSE 70; O2SAT 96; BMI 42.6
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
== END 2023-11-27 17:01 | disposition home or self-care (01) ==
PROVIDERS: PCP Internal Medicine; Visit Provider Internal Medicine
DX: E78.2 Mixed hyperlipidemia (principal); I10 Essential (primary) hypertension; K21.9 Gastro-esophageal reflux disease without esophagitis; R10.11 Right upper quadrant pain; R53.82 Chronic fatigue, unspecified; M47.816 Spondylosis without myelopathy or radiculopathy, lumbar region; G47.00 Insomnia, unspecified; F41.9 Anxiety disorder, unspecified
CPT/HCPCS: 99214

== ENCOUNTER 2023-12-21 07:51 | Outpatient (REF) | payer OTHER, SELFPAY ==
[2023-12-21 08:01] LABS: MANUAL DIFF FLAG NO
[2023-12-21 09:04] LABS: Basophils Absolute Auto 0.1 X10*3/uL (0.0-0.2); Basophils Percent Auto 0.6 % (0-2); Eosinophils Absolute Auto 0.1 X10*3/uL (0.0-0.4); Eosinophils Percent Auto 1.2 % (0-4); Hematocrit 44.4 % (37.0-47.0); Hemoglobin 14.8 g/dl (12.0-16.0); Imm Gran Abs Auto 0.06 X10*3/uL (0.00-0.03); Imm Gran Pct Auto 0.7 % (0.0-0.4); Lymphocytes Absolute Auto 3.8 X10*3/uL (1.2-4.9); Lymphocytes Percent Auto 42.4 % (20-40); Mean Corpuscular HGB Conc 33.3 g/dl (31.0-35.0); Mean Corpuscular Hemoglobin 29.5 pg (27.0-33.0); Mean Corpuscular Volume 88.4 fL (80.0-98.0); Mean Platelet Volume 9.4 fL (9.4-12.3); Monocytes Absolute Auto 0.7 X10*3/uL (0.1-1.2); Monocytes Percent Auto 8.2 % (2-11); Neutrophils Absolute Auto 4.2 x10*3/uL (2.0-8.3); Neutrophils Percent Auto 46.9 % (45-73); Platelet Count 357 X10*3/uL (160-400); Red Blood Count 5.02 X10*6/uL (4.20-5.50); Red Cell Distribution Width 13.7 % (11.0-16.0); White Blood Count 8.9 X10*3/uL (4.8-10.8)
[2023-12-21 09:05] LABS: Estimated Average Glucose 137 mg/dL; Hemoglobin A1c % 6.4 % (<6.0)
[2023-12-21 09:47] LABS: Alanine Aminotransferase 35 U/L (0-31); Albumin Level 4.2 g/dL (3.5-5.0); Alkaline Phosphatase 76 U/L (39-117); Anion Gap 14 (12-20); Aspartate Amino Transferase 19 U/L (5-31); Bilirubin Total 1.6 mg/dL (0.0-1.0); Blood Urea Nitrogen 12 mg/dL (9-16); Calcium 9.5 mg/dL (8.4-10.2); Carbon Dioxide 26 mmol/L (22-29); Chloride 104 mmol/L (96-108); Cholesterol 240 mg/dL (<200); Estimated Glomerular Filt Rate > 60; Glucose Fasting 95 mg/dL (60-99); HDL Cholesterol 41 mg/dL (>40); LDL Cholesterol Calculated 158 mg/dL (<100); Lipase 29 U/L (8-78); Potassium 4.1 mmol/L (3.3-5.1); Sodium 140 mmol/L (135-145); Total Protein 7.6 g/dL (6.5-8.0); Triglycerides 209 mg/dL (<150)
[2023-12-21 09:52] LABS: Appearance Urine Cloudy; Color Urine Dark Yellow; Glucose Urine UA Negative (Negative); Leukocyte Esterase Urine Small (1+) (Negative); Nitrite Urine Negative (Negative); PH 5.5 (5.0-9.0); Specific Gravity - Urine 1.025 (1.005-1.025); UMIC TRIGGER UACC YES; Urine Blood Negative (Negative); Urine Ketones Negative (Negative); Urine Protein Trace mg/dL (Neg-Trace)
[2023-12-21 09:59] LABS: Bacteria Urine 3+ (None Seen); RBC Urine 0-2 /HPF (0-2); Squamous Epithelial Cell Urine >20 /HPF (0-2); UACC Culture Trigger YES; WBC Urine 21-50 /HPF (0-5)
[2023-12-21 10:07] LABS: TSH reflex Free T4 3.27 uIU/mL (0.32-4.0); Vitamin D 25-OH Total 29.1 ng/mL (>30)
== END 2023-12-21 07:52 | disposition home or self-care (01) ==
LOC: HO.LAB 07:51
PROVIDERS: PCP Internal Medicine; Visit Provider Internal Medicine
DX: D64.9 Anemia, unspecified (principal); E78.00 Pure hypercholesterolemia, unspecified; E55.9 Vitamin D deficiency, unspecified; R10.9 Unspecified abdominal pain; R73.9 Hyperglycemia, unspecified; R30.0 Dysuria
CPT/HCPCS: 36415; 80053; 80061; 81001; 82306; 83036; 83690; 84443; 85025; 87086

== ENCOUNTER 2023-12-21 08:05 | Day surgery (SDC) | payer OTHER, SELFPAY ==
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
[2023-12-21 08:15] VITALS: BMI 41.4
[2023-12-21] MEDS: Lactated Ringers 1,000 ML 100 ML IVCONT (08:25)
[2023-12-21 08:32] VITALS: BP 133/77; PULSE 71; RESP 18; TEMP 36.8; O2SAT 98
--- NOTE | 2023-12-21 08:45 | MHC.SHP ---
Pre-Procedural Eval Section A - 24 Hr Update-Section A only Date of Service: 12/21/23 The patient is an INPATIENT: No The patient has been examined within 24 hours of the surgical procedure. The History & Physical has been completed within 30 days and I have reviewed it.: No Section B - Complete if H&P > 30 days Chief Complaint: Diverticulosis of intestine,polyp of colon,benign Relevant Family History (Specify if Yes): Yes Relevant Social History: Tobacco Use Present Medications: see Short Stay Collaborative assessment Medical History: Significant History (Anxiety GERD (gastroesophageal reflux disease) Insomnia Lumbar spondylosis Mixed hyperlipidemia Morbid obesity with BMI of 40.0-44.9, adult) History of Previous Operations: No relevant previous surgery Allergies: Allergies Allergy/AdvReac Type Severity Reaction Status Date / Time No Known Allergies Allergy Verified 12/21/23 08:16 Review of Systems Sugical H&P ROS: Negative: Constitution, Cardiovascular, Respiratory and Gastrointestinal Exam Surgical H&P Exam: Normal: Heart, Normal: Lungs, Normal: Extremities and Normal: Abdomen Plan Diagnosis/Plan: Unchanged I have reviewed the history and physical and performed a pertinent physical examination on my patient. No changes have occurred unless specified. Time Spent With Patient Time: Total time managing care of this patient today ____ minutes.
--- NOTE | 2023-12-21 10:22 | HO.OPN-COLON ---
Colonoscopy Operative Note Operative Note Date of Service: 12/21/23 Narrative: COLONOSCOPY TILL CECUM WITH BIOPSIES, SNARE POLYPECTOMY, SUBMUCOSAL INJECTION AND HEMOCLIP PLACEMENT Pre-op diagnosis: Surveillance for colon polyps. Post-op diagnosis:? Colon polyps, Diverticulosis, hemorrhoids Endoscopist:? Bulmaro Soares MD Anesthesia:?MAC Consent: Indications for the procedure and potential complications of bleeding, perforation, reaction to medications and missed diagnosis were discussed with the patient and informed consent was obtained. Instrument: Olympus CF H 190 L variable stiffness adult colonoscope Monitoring: Vital signs and clinical assessment, intermittent blood pressure monitoring, continuous EKG monitoring, Pulse oximetry and Carbon Dioxide monitoring were done throughout the procedure. Please see anesthesia flowsheet. Colon withdrawl time was 40 minutes. Procedure: The patient was placed in the left lateral decubitis position and pre-procedure medications were administered. After a digital rectal examination of the ano-rectum, the video colonoscope was inserted into the rectum and advanced through the colon to the cecum. The colonoscope was slowly withdrawn in a retrograde panoramic fashion and the colon mucosa was carefully examined including a retroflexed view of the rectum. Findings and interventions are described below. Procedure Difficulty: Colon was long and tortuous and there was some loop formation Findings: Terminal Ileum: Not evaluated Cecum: A 2.5 cms bilobed polyp behind a fold. Polyp was raised with 5 cc of [place] and removed piecemeal with a stiff hot snare. Polypectomy site was treated with cautery using the snare tip, closed with two hemoclips and marked by gee ink. Ascending Colon: Normal Transverse Colon: A 10 mm sessile polyp removed with a cold snare Descending Colon: Normal Sigmoid Colon: Polypectomy site seen at 40 cms without recurrent/residual polyp - biopsies were obtained. Moderate diverticulosis Rectum: Normal Ano-rectum: Moderate internal hemorrhoids Colon preparation: Good after some irrigation. [place] Bowel Preparation Scale Right colon; 3 Transverse colon: 3 Left colon; 3 (0 = Unprepared colon segment with mucosa not seen due to solid stool that cannot be cleared. 1 = Portion of mucosa of the colon segment seen, but other areas of the colon segment not well seen due to staining, residual stool and/or opaque liquid. 2 = Minor amount of residual staining, small fragments of stool and/or opaque liquid, but mucosa of colon segment seen well. 3 = Entire mucosa of colon segment seen well with no residual staining, small fragments of stool or opaque liquid) Impression and Post Procedure Diagnosis: Colonoscopy Findings: One large and one medium sized polyps were removed Polypectomy site seen at 40 cms without recurrent/residual polyp - biopsies were obtained. Moderate diverticulosis seen in the sigmoid colon Moderate hemorrhoids on retroflexed exam. Plan: Pt has a FU appointment on 01/28/[address], Repeat Colonoscopy in 1 year if polyps are adenomatous and due to a hx of multiple adenomatous polyps (adult colonoscope for future colonoscopies). Above findings were reviewed with the patient and relevant handouts were given and the discharge area. BIOPSIES SHOWED: A. Colon, cecal polyp: Tubulovillous adenoma with serrated features (cannot evaluate margin); negative for high-grade dysplasia and carcinoma. B. Colon, transverse, polyp: Tubular adenoma; negative for high-grade dysplasia and carcinoma. C. Colon, at 40 cm, polypectomy site, biopsy: Colonic mucosa with lymphoid aggregate and no specific change; no evidence of adenomatous dysplasia
[2023-12-21 10:25] VITALS: BP 109/72; PULSE 71; RESP 18; TEMP 36.4; O2SAT 100
[2023-12-21 10:40] VITALS: BP 114/79; PULSE 67; RESP 18; O2SAT 99
== END 2023-12-21 11:05 | disposition home or self-care (01) ==
PROVIDERS: PCP Internal Medicine; Visit Provider Internal Medicine Gastroenterology
PROC: 0DJD8ZZ Inspection of Lower Intestinal Tract, Via Natural or Artificial Opening Endoscopic (ICD-10-PCS; CPT 45378; principal; 2023-12-21 09:20)
DX: Z12.11 Encounter for screening for malignant neoplasm of colon (principal); D12.0 Benign neoplasm of cecum; D12.3 Benign neoplasm of transverse colon; K57.30 Diverticulosis of large intestine without perforation or abscess without bleeding; K64.8 Other hemorrhoids; K56.2 Volvulus; Z86.010 Personal history of colon polyps
CPT/HCPCS: 45385; 45381; 45380; 88305; J2250; J2704

== ENCOUNTER → 2023-12-21 08:05 | Outpatient (BNV) | payer OTHER, SELFPAY | PROVIDERS: PCP Internal Medicine; Visit Provider Internal Medicine Gastroenterology | DX: Z12.11 Encounter for screening for malignant neoplasm of colon (principal); Z86.010 Personal history of colon polyps; D12.3 Benign neoplasm of transverse colon; K63.5 Polyp of colon | CPT/HCPCS: 45380; 45381; 45385 ==

== ENCOUNTER 2024-04-01 16:56 | Outpatient (AMB) | payer OTHER, SELFPAY ==
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
[2024-04-01 17:02] VITALS: BP 130/60; PULSE 94; O2SAT 95; BMI 42.0
== END 2024-04-01 17:44 | disposition home or self-care (01) ==
PROVIDERS: PCP Internal Medicine; Visit Provider Internal Medicine
DX: E78.2 Mixed hyperlipidemia (principal); I10 Essential (primary) hypertension; R73.01 Impaired fasting glucose; K21.9 Gastro-esophageal reflux disease without esophagitis; E55.9 Vitamin D deficiency, unspecified; R10.11 Right upper quadrant pain; G47.33 Obstructive sleep apnea (adult) (pediatric); R53.82 Chronic fatigue, unspecified; M47.816 Spondylosis without myelopathy or radiculopathy, lumbar region; M25.50 Pain in unspecified joint; G47.00 Insomnia, unspecified; F41.9 Anxiety disorder, unspecified; E66.9 Obesity, unspecified

== ENCOUNTER → 2024-04-01 16:56 | Outpatient (BNVA) | payer OTHER, SELFPAY | PROVIDERS: PCP Internal Medicine; Visit Provider Internal Medicine | DX: R73.01 Impaired fasting glucose (principal); E78.2 Mixed hyperlipidemia; K21.9 Gastro-esophageal reflux disease without esophagitis; I10 Essential (primary) hypertension; E55.9 Vitamin D deficiency, unspecified; R10.11 Right upper quadrant pain; R53.83 Other fatigue; F41.9 Anxiety disorder, unspecified; E66.9 Obesity, unspecified | CPT/HCPCS: 83036; 99212 ==

== ENCOUNTER 2024-07-29 13:22 | Outpatient (AMB) | payer OTHER, SELFPAY ==
[2024-07-29 13:25] VITALS: BP 122/78; PULSE 76; O2SAT 98; BMI 38.0
--- NOTE | 2024-07-29 13:25 | A.OFFPC_ITS ---
Vital Signs 07/29/24 13:25 Height 5 ft 8 in Weight 250 lb BMI 38.0 BP 122/78 Blood Pressure Location Lt brachial Position Sitting Pulse 76 Pulse Source Pulse Oximeter Pulse Oximetry (%) 98 Oxygen Delivery Method Room Air Intake Visit Reasons: daniel graves/alfredo Delivery Nurse Required: No Accompanied by: Self / Same As Patient Allergies No Known Allergies Allergy (Verified 07/29/24 13:39) Medication List - Last Reconciled 07/29/24 by Abhay Peralta MD buspirone 30 mg PO BID cholecalciferol (vitamin D3) 50 mcg PO DAILY 90 days clonidine HCl 0.3 mg PO BEDTIME clotrimazole 1% 1 appl topical QAM AND QHS escitalopram oxalate 20 mg PO QAM escitalopram oxalate 5 mg PO DAILY ibuprofen 800 mg PO TID PRN methylcellulose (laxative) (Fiber Therapy (methylcellulose)) 500 mg PO TID metoprolol succinate ER 25 mg PO DAILY nystatin (Nystop) 1 appl topical TID 10 days semaglutide (weight loss) 1.7 mg (0.75 mL) subcut QWEEK 4 weeks tirzepatide (Mounjaro) 2.5 mg (0.5 mL) subcut QWEEK 4 weeks tramadol 50 mg PO TID PRN 10 days zolpidem 1.75 mg sublingual BEDTIME Tobacco use date assessed: 07/29/24 Dental Screening Dental Screen Date: 07/29/24 Did you have a dental visit in the last 12 months?: Yes Did you have a dental problem in the last 6 months where you did not have access to dental care?: No Was dental information given to patient?: Patient has dentist HPI daniel graves/alfredo HPI Details Patient comes in today for her follow up visit and to discuss alternative weight loss options since her insurance recently declined to continue to cover her Wegovy Rx, which she states has helped her lose a lot of weight in a relatively short amount of time lately States that she is very disappointed that her insurance would not approve her Rx any longer and even denied recent prior authorization requests for her Rx She would like to know what she can try now as she does not want to risk gaining all of the weight she lost recently back States that she feels okay but is starting to get the cravings for food again that she has not had since she started taking Wegovy several weeks ago She denies any headaches or dizziness Denies any chest pains, no shortness of breath No nausea/vomiting, no abdominal pain No change in bowel habits noted [facility] Medical History (Updated 08/04/24 @ 02:01 by Abhay Peralta MD) Vitamin D deficiency Impaired fasting glucose Obstructive sleep apnea Essential hypertension Obesity (BMI 30-39.9) GERD (gastroesophageal reflux disease) Anxiety Insomnia Lumbar spondylosis Mixed hyperlipidemia Morbid obesity with BMI of 40.0-44.9, adult Surgical History (Updated 07/29/24 @ 13:54 by Abhay Peralta MD) Hx of colonoscopy Social History Housing: Apartment Alcohol intake: never Patient Tobacco Use Status: Former Tobacco user Tobacco use type: Cigarette e-Cigarette/Vaping Use: Currently Using Second Hand Smoke Exposure: Yes service: No Current occupational status: disabled Cognitive needs: No Hearing needs: No Vision needs: Yes Questionnaire PHQ-9 Over the last 2 weeks, how often have you been bothered by any of the following problems? 1. Little interest or pleasure in doing things: not at all 2. Feeling down, depressed, or hopeless: not at all 3. Trouble falling or staying asleep, or sleeping too much: not at all 4. Feeling tired or having little energy: not at all 5. Poor appetite or overeating: not at all 6. Feeling bad about yourself - or that you are a failure or have let yourself or your family down: not at all 7. Trouble concentrating on things, such as reading the newspaper or watching television: not at all 8. Moving or speaking so slowly that other people could have noticed. Or the opposite - being so fidgety or restless that you have been moving around a lot more than usual: not at all 9. Thoughts that you would be better off or of hurting yourself in some way: not at all Total score: 0 Depression Screening Interpretation: Negative Depression Screening Done: Yes 83578 - PHQ-9 Billing: Yes Source: Developed by Drs. Marquis Seals, Rosa Paulino, Ronan Olivo and colleagues, with an educational marla from [employer]. Thrive Questionnaire Date Thrive assessed: 07/29/24 I am a: Patient What is your living situation today?: I have a steady place to live Within the past 12 months, did the food you bought not last and you didn't have the money to get more?: Never true Within the past 12 months, did you worry whether your food would run out before you got money to buy more?: Never true Do you have trouble paying for medicines?: No Do you have trouble getting transportation to medical appointments?: No Do you have trouble paying your heating and electricity bill?: No Do you have trouble taking care of your child, family member or friend?: No Do you have trouble with day-to-day activities such as bathing, preparing meals, shopping, managing finances, etc.?: No Are you currently unemployed and looking for a job?: I choose not to answer this question Are you interested in more education?: No Please select the resources that you would like help with: None Currently or been in a relationship where the following occur: No concerns reported THRIVE Score: 0 AUDIT C Alcohol Use Questionnaire (AUDIT-C) 1. How often do you have a drink containing alcohol?: Never 3. How often do you have six or more drinks on one occasion?: Never Total Score: 0 Score Reviewed/Action Taken: Yes LUBNA-7 AMB Questionnaire LUBNA-7 Date LUBNA - 7 assessed: 07/29/24 Feeling nervous, anxious, or on edge: 0 = Not at all Not being able to stop or control worryin = Not at all Worrying too much about different things: 0 = Not at all Trouble relaxin = Not at all Being so restless that it is hard to sit still: 0 = Not at all Becoming easily annoyed or irritable: 0 = Not at all Feeling afraid as if something awful might happen: 0 = Not at all Total LUBNA-7 score (0-4 normal; 5-9 mild; 10-14 moderate; 15-21 severe): 0 Source: Developed by Drs. Marquis Seals, Rosa Paulino, Ronan Olivo and colleagues, with an educational marla from [employer]. Review of Systems Const Denies chills, Denies fatigue, Denies fever(s) and Denies headache(s) ENT Denies dysphagia, Denies dizziness, Denies otalgia, Denies headache(s), Denies neck pain, Denies odynophagia and Denies sore throat Card Denies chest pain, Denies palpitations and Denies dyspnea Resp Denies cough and Denies dyspnea GI Denies abdominal pain, Denies constipation, Denies dysphagia, Denies heartburn, Denies diarrhea, Denies nausea, Denies odynophagia and Denies vomiting Denies difficulty voiding, Denies nocturia, Denies dysuria and Denies urinary urgency Musc Reports back pain (over the lower back - chronic), Reports arthralgias (on and off over several joints but especially over her hands/fingers) and Denies neck pain Skin/Breast Denies rash Neuro Denies dizziness and Denies headache(s) Endo Denies fatigue and Denies palpitations Physical exam (Primary Care) Vital Signs: Last Vital Signs Pulse 76 07/29/24 13:25 BP 122/78 07/29/24 13:25 Pulse Ox 98 07/29/24 13:25 Oxygen Delivery Method Room Air 07/29/24 13:25 BMI result Body Mass Index 38.0 Tobacco/Smoking Status: Tobacco use Status Tobacco use date assessed 07/29/24 07/29/24 13:33 Patient Tobacco Use Status Former Tobacco user 07/29/24 13:33 Tobacco use type Cigarette 07/29/24 13:33 e-Cigarette/Vaping Use Currently Using 07/29/24 13:33 PHQ-9: PHQ-9 Score PHQ-9: Total score 0 07/29/24 13:54 Depression Screening Interpretation: Negative Thrive Assessment: Date of Thrive Assessment Date Thrive assessed 07/29/24 07/29/24 13:33 Currently or been in a relationship where the following occur: No concerns reported Const General: no acute distress and alert HENMT Ears: TM's normal bilaterally and EAC's normal Throat: Yes posterior oropharynx normal and Yes tonsils normal Neck Neck: Yes no lymphadenopathy and Yes supple Thyroid: Thyroid normal Resp Auscultation: clear to auscultation bilaterally, no rales and no wheezes Cardio Rate: regular rate Rhythm: regular rhythm Heart sounds: no murmurs GI Palpation (GI): Soft to palpation and nontender Auscultation: normal bowel sounds General: Yes no CVA tenderness Back/Spine/Pelvis Back: no CVA tenderness Cervical Spine: cervical muscular tenderness (over the right side) and cervical spasm (right-sided) Thoracic/Lumbar Spine: lumbar spinal tenderness Skin Rashes: no rashes Extrem General: Yes no clubbing, cyanosis or edema Coding Level of Care Code Est Pt Level 4 (25558) Diagnoses Mixed hyperlipidemia E78.2 Essential hypertension I10 Impaired fasting glucose R73.01 Gastroesophageal reflux disease without esophagitis K21.9 Esophagitis presence: without esophagitis Obstructive sleep apnea G47.33 Nonalcoholic hepatosteatosis K76.0 Vitamin D deficiency E55.9 Chronic fatigue R53.82 Lumbar spondylosis M47.816 Insomnia, unspecified type G47.00 Insomnia type: unspecified Anxiety F41.9 Obesity (BMI 30-39.9) E66.9 Additional Codes PHQ-9 - 44074 - PHQ-9 Billing: Yes ([id number]) Assessment & Plan Assessment & Plan (1) Mixed hyperlipidemia: Code(s): E78.2 - Mixed hyperlipidemia Category: Medical Plan: Reinforced low-cholesterol diet She has been recommended several times to start pharmacotherapy for her high cholesterol but patient prefers to continue with diet modification alone Stress testing done in September 2022 came out negative/normal; myocardial perfusion imaging study shows normal myocardial perfusion. Gated LVEF is 56% Will have patient recheck her labs and fasting lipids as scheduled in a couple of months for follow up (2) Essential hypertension: Code(s): I10 - Essential (primary) hypertension Category: Medical Plan: Reinforced low sodium diet - goal is systolic BP of 120 mm or less Continue Metoprolol ER 25 mg QD; she also takes Clonidine 0.3 mg Q HS mostly for her anxiety but this can also help/affect her blood pressure Patient is reminded to continue monitoring her blood pressure regularly (3) Impaired fasting glucose: Code(s): R73.01 - Impaired fasting glucose Category: Medical Plan: Her in-office HgbA1c was at 6.4% a few months ago, which places her in the borderline/early diabetes category Reinforced low calorie/low carb diet Will recheck her labs and HgbA1c in a couple of months for follow up (4) GERD (gastroesophageal reflux disease): Comment: rare reflux Code(s): K21.9 - Gastro-esophageal reflux disease without esophagitis Category: Medical Qualifiers: Esophagitis presence: without esophagitis Qualified Code(s): K21.9 - Gastro-esophageal reflux disease without esophagitis Plan: Dietary restrictions reinforced She has Omeprazole 20 mg QD to take when needed but has not done so in a while (5) Obstructive sleep apnea: Code(s): G47.33 - Obstructive sleep apnea (adult) (pediatric) Category: Medical Plan: Continue using her auto-Pap device, with settings of 5 to 20 cm water when sleeping at night She was seen by Sleep Medicine previously in 2021 and underwent work ups for possible JESUS ALBERTO Her initial home sleep study was inconclusive and she then went for an in-house sleep study, which revealed (+) mild JESUS ALBERTO with significant increase in severity in REM sleep (6) Nonalcoholic hepatosteatosis: Code(s): K76.0 - Fatty (change of) liver, not elsewhere classified Category: Medical Plan: Abdominal US done back in April 2023 revealed findings of hepatic steatosis, cholelithiasis and adenomyomatosis of the gallbladder Patient currently remains asymptomatic (7) Vitamin D deficiency: Code(s): E55.9 - Vitamin D deficiency, unspecified Category: Medical Plan: Continue Vitamin D3 2000 units QD (8) Chronic fatigue: Code(s): R53.82 - Chronic fatigue, unspecified Category: Medical Plan: She has been seeing and following up with Wellness Medicine at [facility] for her chronic fatigue (9) Lumbar spondylosis: Code(s): M47.816 - Spondylosis without myelopathy or radiculopathy, lumbar region Category: Medical Plan: Reinforced activity and weight lifting restrictions Continue Tramadol 50 mg TID PRN and Ibuprofen 800 mg TID with food PRN for pain (10) Insomnia: Code(s): G47.00 - Insomnia, unspecified Category: Medical Qualifiers: Insomnia type: unspecified Qualified Code(s): G47.00 - Insomnia, unspecified Plan: Sleep hygiene reinforced Continue Zolpidem 1.75 mg SL Q HS PRN and Clonidine 0.3 mg Q HS She is following up with psychiatry for this as well (11) Anxiety: Code(s): F41.9 - Anxiety disorder, unspecified Category: Medical Plan: Continue Buspirone 30 mg BID, Clonidine 0.3 mg Q HS and Escitalopram 20 mg QD Follow up with psychiatry as scheduled (12) Obesity (BMI 30-39.9): Code(s): E66.9 - Obesity, unspecified Category: Medical Plan: Reinforced diet/exercise as tolerated/lose weight She has been able to lose about 26 pounds since being started on Semaglutide back in March 2024 but her insurance will not continue covering her Rx and attempts at prior authorizations have also been denied Per insurance guidelines, she has to try Phentermine first and fail this before they will agree to cover Sematglutide again as a weight loss option Will go ahead and start her on Phentermine 37.5 mg Q AM 2 hours after breakfast Patient is instructed to monitor her BP and is she notices her BP staying cons istently elevated significantly while on Phentermine, then she may need to discontinue use of the medication Plan To return as scheduled in September 2024 for her annual physical examination Medications: New phentermine must administer 30 minutes before or 1-2 hours after breakfast 37.5 mg PO DAILY 30 days 30 caps 0RF
== END 2024-07-29 15:25 | disposition home or self-care (01) ==
LOC: HO.HMCH 13:22
PROVIDERS: PCP Internal Medicine; Visit Provider Internal Medicine
DX: E78.2 Mixed hyperlipidemia (principal); I10 Essential (primary) hypertension; E66.9 Obesity, unspecified; Z68.38 Body mass index [BMI] 38.0-38.9, adult; R73.01 Impaired fasting glucose; G47.33 Obstructive sleep apnea (adult) (pediatric); K21.9 Gastro-esophageal reflux disease without esophagitis; K76.0 Fatty (change of) liver, not elsewhere classified; E55.9 Vitamin D deficiency, unspecified; R53.82 Chronic fatigue, unspecified; M47.816 Spondylosis without myelopathy or radiculopathy, lumbar region; G47.00 Insomnia, unspecified

== ENCOUNTER → 2024-07-29 13:22 | Outpatient (BNVA) | payer OTHER, SELFPAY | PROVIDERS: PCP Internal Medicine; Visit Provider Internal Medicine | DX: E78.2 Mixed hyperlipidemia (principal); I10 Essential (primary) hypertension; R73.01 Impaired fasting glucose; K21.9 Gastro-esophageal reflux disease without esophagitis; G47.33 Obstructive sleep apnea (adult) (pediatric); K76.0 Fatty (change of) liver, not elsewhere classified; E55.9 Vitamin D deficiency, unspecified; R53.82 Chronic fatigue, unspecified; M47.816 Spondylosis without myelopathy or radiculopathy, lumbar region; G47.00 Insomnia, unspecified; F41.9 Anxiety disorder, unspecified; E66.9 Obesity, unspecified; Z68.38 Body mass index [BMI] 38.0-38.9, adult; Z71.3 Dietary counseling and surveillance | CPT/HCPCS: 96127; 99212 ==

== ENCOUNTER 2024-10-15 08:25 | Outpatient (AMB) | payer OTHER, SELFPAY ==
--- NOTE | 2024-10-15 08:33 | A.OFFPC_ITS ---
Vital Signs 10/15/24 08:46 Height 5 ft 8 in Weight 255 lb 8 oz BMI 38.8 BP 118/82 Blood Pressure Location Lt brachial Position Sitting Pulse 65 Pulse Source Pulse Oximeter Pulse Oximetry (%) 97 Oxygen Delivery Method Room Air Intake Visit Reasons: annual physical Medication Care Manager Required: No Accompanied by: Self / Same As Patient Allergies No Known Allergies Allergy (Verified 10/15/24 08:50) Medication List - Last Reconciled 10/15/24 by LINSEY Farias buspirone 30 mg PO BID cholecalciferol (vitamin D3) 50 mcg PO DAILY 90 days clonidine HCl 0.3 mg PO BEDTIME clotrimazole 1% 1 appl topical QAM AND QHS escitalopram oxalate 20 mg PO QAM escitalopram oxalate 5 mg PO DAILY fluconazole 100 mg PO DAILY 5 days ibuprofen 800 mg PO TID PRN methylcellulose (laxative) (Fiber Therapy (methylcellulose)) 500 mg PO TID metoprolol succinate ER 25 mg PO DAILY nystatin (Nystop) 1 appl topical TID 10 days phentermine 37.5 mg PO DAILY 30 days semaglutide (weight loss) 1.7 mg (0.75 mL) subcut QWEEK 4 weeks tirzepatide (Mounjaro) 2.5 mg (0.5 mL) subcut QWEEK 4 weeks tramadol 50 mg PO TID PRN 10 days zolpidem 1.75 mg sublingual BEDTIME Tobacco use date assessed: 10/15/24 Dental Screening Dental Screen Date: 10/15/24 Did you have a dental visit in the last 12 months?: Yes Did you have a dental problem in the last 6 months where you did not have access to dental care?: No Was dental information given to patient?: Patient has dentist HPI annual physical HPI Details Dentist: up to date Eye: up to date Snellen: Right: Left: Corrected vision: glasses STI screening: Colonoscopy: 2023-requested repeat 2024 mammogram: due 11/2024 Pap Smer: appt coming up in November PHQ-9: Flu: decline COVID: x2 Tdap: decline Diet: Regular-she was on the Wegovy and her insurance decline covering now Exercise: Walking Patient reports that she constantly feeling some thing is stock in her throat and needs to come out Reports nasal congestion and intermittent postnasal drip Patient also reports rash/moisture under breasts and groin area. Reports that Dr. Peralta prescribed nystatin for but it is sometimes hard for her to use she was wondering if she could get a cream Patient denies any shortness of breath, chest pain heart palpitation or dizziness She denies any abdominal pain or change in bowel habits or any urinary symptoms Patient denies joint pain as well FORMERLY [facility], [facility]1983 Medical History (Updated 10/15/24 @ 09:10 by LINSEY Farias) Vitamin D deficiency Impaired fasting glucose Obstructive sleep apnea Essential hypertension Obesity (BMI 30-39.9) GERD (gastroesophageal reflux disease) Anxiety Insomnia Lumbar spondylosis Mixed hyperlipidemia Morbid obesity with BMI of 40.0-44.9, adult Surgical History Hx of colonoscopy Social History Housing: Apartment Alcohol intake: never Patient Tobacco Use Status: Former Tobacco user Tobacco use type: Cigarette e-Cigarette/Vaping Use: Currently Using Second Hand Smoke Exposure: Yes service: No Current occupational status: disabled Cognitive needs: No Hearing needs: No Vision needs: Yes Questionnaire PHQ-9 Over the last 2 weeks, how often have you been bothered by any of the following problems? 1. Little interest or pleasure in doing things: not at all 2. Feeling down, depressed, or hopeless: not at all 3. Trouble falling or staying asleep, or sleeping too much: not at all 4. Feeling tired or having little energy: not at all 5. Poor appetite or overeating: nearly every day 6. Feeling bad about yourself - or that you are a failure or have let yourself or your family down: not at all 7. Trouble concentrating on things, such as reading the newspaper or watching television: not at all 8. Moving or speaking so slowly that other people could have noticed. Or the opposite - being so fidgety or restless that you have been moving around a lot more than usual: not at all 9. Thoughts that you would be better off or of hurting yourself in some way: not at all Total score: 3 Source: Developed by Drs. Marquis Seals, Ronan Velasquezke and colleagues, with an educational marla from [employer]. Thrive Questionnaire Date Thrive assessed: 10/15/24 I am a: Patient What is your living situation today?: I have a steady place to live Within the past 12 months, did the food you bought not last and you didn't have the money to get more?: Often true Within the past 12 months, did you worry whether your food would run out before you got money to buy more?: Often true Do you have trouble paying for medicines?: No Do you have trouble getting transportation to medical appointments?: No Do you have trouble paying your heating and electricity bill?: I choose not to answer this question Do you have trouble taking care of your child, family member or friend?: No Do you have trouble with day-to-day activities such as bathing, preparing meals, shopping, managing finances, etc.?: No Are you currently unemployed and looking for a job?: No Are you interested in more education?: No Please select the resources that you would like help with: None Currently or been in a relationship where the following occur: No concerns reported THRIVE Score: 2 AUDIT C Alcohol Use Questionnaire (AUDIT-C) 1. How often do you have a drink containing alcohol?: Never 3. How often do you have six or more drinks on one occasion?: Never Total Score: 0 LUBNA-7 AMB Questionnaire LUBNA-7 Date LUBNA - 7 assessed: 10/15/24 Feeling nervous, anxious, or on edge: 0 = Not at all Not being able to stop or control worryin = Not at all Worrying too much about different things: 0 = Not at all Trouble relaxin = Not at all Being so restless that it is hard to sit still: 0 = Not at all Becoming easily annoyed or irritable: 0 = Not at all Feeling afraid as if something awful might happen: 0 = Not at all Total LUBNA-7 score (0-4 normal; 5-9 mild; 10-14 moderate; 15-21 severe): 0 Source: Developed by Drs. Marquis Seals, Ronan Velasquez and colleagues, with an educational marla from [employer]. Review of Systems Const Denies headache(s) Eyes Denies loss of vision ENT Denies vertigo, Denies dizziness, Denies headache(s), Reports nasal congestion, Reports post nasal drip, Denies sore throat and Reports other (Throat sensation like something is stuck) Card Denies chest pain, Denies leg edema and Denies lightheadedness Resp Denies cough, Denies hemoptysis and Denies wheezing GI Denies abdominal pain, Denies melena, Denies constipation, Denies diarrhea and Denies vomiting Denies urinary frequency, Denies dysuria and Denies urinary urgency Musc Denies arthralgias, Denies joint swelling, Denies numbness and Denies tingling Skin/Breast Reports rash (Underneath breast and groin area) Neuro Denies Abnormal speech present, Denies behavioral changes, Denies vertigo, Denies dizziness, Denies headache(s), Denies loss of vision, Denies memory loss, Denies numbness and Denies tingling Psych Denies anxiety, Denies behavioral changes, Denies depression, Denies memory loss and Denies panic attacks Ehsan/Lymph Denies easy bleeding and Denies easy bruising Aller/Immun Denies wheezing Physical exam (Primary Care) Vital Signs: Last Vital Signs Pulse 65 10/15/24 08:46 BP 118/82 10/15/24 08:46 Pulse Ox 97 10/15/24 08:46 Oxygen Delivery Method Room Air 10/15/24 08:46 BMI result Body Mass Index 38.8 Tobacco/Smoking Status: Tobacco use Status Tobacco use date assessed 10/15/24 10/15/24 08:50 Patient Tobacco Use Status Former Tobacco user 10/15/24 08:34 Tobacco use type Cigarette 10/15/24 08:34 e-Cigarette/Vaping Use Currently Using 10/15/24 08:34 PHQ-9: PHQ-9 Score PHQ-9: Total score 3 10/15/24 09:12 Thrive Assessment: Date of Thrive Assessment Date Thrive assessed 10/15/24 10/15/24 08:50 Currently or been in a relationship where the following occur: No concerns reported Const General: healthy appearing, no acute distress, alert and awake Nutritional Appearance: well nourished Orientation/consciousness: oriented to person, oriented to place and oriented to time HENMT Ears: TM's normal bilaterally General nose exam: Abnormal mucous membranes and turbinates present boggy and erythematous and Nasal discharge present purulent on the left Eyes Conjunctivae: conjunctivae normal Sclerae: sclerae normal Pupils: Equal, round and reactive pupils present Neck Neck: Yes no lymphadenopathy and Yes no JVD Thyroid: Thyroid normal Carotids: no bruits Resp Effort & Inspection: normal respiratory effort and not tachypneic Auscultation: no crackles, no rales, no rhonchi and no wheezes Cardio Rate: regular rate Rhythm: regular rhythm Heart sounds: no murmurs and normal S1 and S2 GI Palpation (GI): Soft to palpation, nontender, no hepatomegaly and no splen omegaly Auscultation: normal bowel sounds Skin General skin exam: dry skin Rashes: rashes noted macules bilateral breast Neuro General: oriented to person, oriented to place and oriented to time Cranial nerves: Yes Equal, round and reactive pupils present Speech: No Abnormal speech present Gait exam (Neuro): Normal gait present Motor exam (neuro): no tremor noted Extrem Right upper extremity: full ROM Left upper extremity: full ROM Right lower extremity: full ROM; no edema Left lower extremity: full ROM; no edema Psych Mental Status: mental status grossly normal Speech and movement: Normal speech and movement present Affect: normal affect Attitude: cooperative Thought process: Normal thought process present Coding Level of Care Code Est Pt Prev Care 40-64y(13095) Diagnoses Annual physical exam Z00.00 Rhinosinusitis J32.9 Nonalcoholic hepatosteatosis K76.0 Vitamin D deficiency E55.9 Obstructive sleep apnea G47.33 Essential hypertension I10 Obesity (BMI 30-39.9) E66.9 Intertrigo L30.4 Elevated bilirubin R17 Gastroesophageal reflux disease without esophagitis K21.9 Esophagitis presence: without esophagitis Anxiety F41.9 Insomnia, unspecified type G47.00 Insomnia type: unspecified Mixed hyperlipidemia E78.2 Lumbar spondylosis M47.816 Time Spent (min) 36 Assessment & Plan Assessment & Plan (1) Annual physical exam: Code(s): Z00.00 - Encounter for general adult medical examination without abnormal findings Category: Medical Plan: Preventative guidelines reviewed with the patient. The patient is up-to-date on all guidelines. No recent labs. Encouraged to get labs done as soon as possible. Colonoscopy and mammogram due in 11/2024. The patient reports that they usually call her with the appt. (2) Rhinosinusitis: Code(s): J32.9 - Chronic sinusitis, unspecified Category: Medical Plan: Augmentin 875-125 mg 1 tab b.i.d. times 10 days ordered (3) Nonalcoholic hepatosteatosis: Code(s): K76.0 - Fatty (change of) liver, not elsewhere classified Category: Medical Plan: Reinforced low-cholesterol diet and activity as tolerated. The patient is currently on phentermine to try and lose weight. Reports that she had gained weaned back that she lost while she was on Wegovy. The patient reports that she is taking the phentermine in the morning 30 minutes before eating. Discussed with the patient that she has to at least wait an hour before eating or 2 hours after eating for medication to be effective. (4) Vitamin D deficiency: Code(s): E55.9 - Vitamin D deficiency, unspecified Category: Medical Plan: Continue cholecalciferol 50 mcg daily (5) Obstructive sleep apnea: Code(s): G47.33 - Obstructive sleep apnea (adult) (pediatric) Category: Medical Plan: Continue using her auto-Pap device, with settings of 5 to 20 cm water when sleeping at night She was seen by Sleep Medicine previously in 2021 and underwent work ups for possible JESUS ALBERTO Her initial home sleep study was inconclusive and she then went for an in-house sleep study, which revealed (+) mild JESUS ALBERTO with significant increase in severity in REM sleep (6) Essential hypertension: Code(s): I10 - Essential (primary) hypertension Category: Medical Plan: Reinforced a low-sodium diet Continue metoprolol succinate ER 25 mg daily. The patient is also taking clonidine 0.3 mg at night for sleep; this also helps her blood pressure (7) Obesity (BMI 30-39.9): Code(s): E66.9 - Obesity, unspecified Category: Medical Plan: Encouraged to exercise for at least 30 minutes a day/5 days a week Healthy eating discussed. Encouraged to eat fruits/vegetables, protein- fish/baked chicken, and to avoid salty/fried foods, sweets, caffeine and carbohydrates. Encouraged to increase water intake 6-8 glasses a day Continue phentermine 37.5 mg daily in the morning 1 hour before eating or 2 hours after eating (8) Intertrigo: Code(s): L30.4 - Erythema intertrigo Category: Medical Plan: Patient reports that she was taking nystatin powder and it is difficult for her to apply and was wondering if this could be changed to a cream. Clotrimazole 1% topical q.a.m. and HS was refilled. The patient was on this medication in the past and this worked well for her (9) Elevated bilirubin: Comment: No jaundice-MLC [place]-benign Code(s): R17 - Unspecified jaundice Category: Medical Plan: Patient was encouraged to get labs done as soon as she can. No recent labs to compare. We will continue to monitor (10) GERD (gastroesophageal reflux disease): Comment: rare reflux Code(s): K21.9 - Gastro-esophageal reflux disease without esophagitis Category: Medical Qualifiers: Esophagitis presence: without esophagitis Qualified Code(s): K21.9 - Gastro-esophageal reflux disease without esophagitis Plan: Reinforced dietary restrictions The patient was taken omeprazole 20 mg OTC as needed in the past. Reports that this is stable at this time (11) Anxiety: Code(s): F41.9 - Anxiety disorder, unspecified Category: Medical Plan: Encouraged CBT Continue buspirone 30 mg b.i.d., escitalopram oxalate 5 mg daily and escitalopram oxalate 20 mg q.a.m. Follow up with Psychiatry as scheduled (12) Insomnia: Code(s): G47.00 - Insomnia, unspecified Category: Medical Qualifiers: Insomnia type: unspecified Qualified Code(s): G47.00 - Insomnia, unspecified Plan: Reinforced sleep hygiene Continue zolpidem 1.75 mg sublingual at bedtime, clonidine 0.3 mg at bedtime (13) Mixed hyperlipidemia: Code(s): E78.2 - Mixed hyperlipidemia Category: Medical Plan: Reinforced low-cholesterol diet and activity as tolerated (14) Lumbar spondylosis: Code(s): M47.816 - Spondylosis without myelopathy or radiculopathy, lumbar region Category: Medical Plan: Reinforced activity and weight restriction Continue ibuprofen 800 mg t.i.d., tramadol 50 mg t.i.d. p.r.n. Medications: New amoxicillin-pot clavulanate 875-125 mg 1 tab PO BID 10 days 20 tabs 0RF J32.9 - Chronic sinusitis, unspecified clotrimazole 1% 1 appl topical QAM AND QHS 45 grams 2RF
[2024-10-15 08:46] VITALS: BP 118/82; PULSE 65; O2SAT 97; BMI 38.8
== END 2024-10-15 09:47 | disposition home or self-care (01) ==
LOC: HO.HMCH 08:25
PROVIDERS: PCP Internal Medicine
DX: Z00.00 Encounter for general adult medical examination without abnormal findings (principal); J32.9 Chronic sinusitis, unspecified; E66.9 Obesity, unspecified; Z68.38 Body mass index [BMI] 38.0-38.9, adult; K76.0 Fatty (change of) liver, not elsewhere classified; E55.9 Vitamin D deficiency, unspecified; G47.33 Obstructive sleep apnea (adult) (pediatric); I10 Essential (primary) hypertension; L30.4 Erythema intertrigo; R17 Unspecified jaundice; K21.9 Gastro-esophageal reflux disease without esophagitis; F41.9 Anxiety disorder, unspecified; G47.00 Insomnia, unspecified; E78.2 Mixed hyperlipidemia; M47.816 Spondylosis without myelopathy or radiculopathy, lumbar region

== ENCOUNTER → 2024-10-15 08:25 | Outpatient (BNVA) | payer OTHER, SELFPAY | PROVIDERS: PCP Internal Medicine | DX: Z00.00 Encounter for general adult medical examination without abnormal findings (principal); J32.9 Chronic sinusitis, unspecified; K76.0 Fatty (change of) liver, not elsewhere classified; E55.9 Vitamin D deficiency, unspecified; G47.33 Obstructive sleep apnea (adult) (pediatric); I10 Essential (primary) hypertension; E66.9 Obesity, unspecified; L30.4 Erythema intertrigo; K21.9 Gastro-esophageal reflux disease without esophagitis; F41.9 Anxiety disorder, unspecified; G47.00 Insomnia, unspecified; E78.2 Mixed hyperlipidemia; M47.816 Spondylosis without myelopathy or radiculopathy, lumbar region | CPT/HCPCS: 99396 ==

== ENCOUNTER 2025-03-06 07:27 | Day surgery (SDC) | payer OTHER, SELFPAY ==
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
--- NOTE | 2025-03-06 06:57 | MHC.SHP ---
Pre-Procedural Eval Section A - 24 Hr Update-Section A only Date of Service: 03/06/25 The patient is an INPATIENT: No The patient has been examined within 24 hours of the surgical procedure. The History & Physical has been completed within 30 days and I have reviewed it.: Yes Section B - Complete if H&P > 30 days Chief Complaint: Surveillance for colon polyps Relevant Family History (Specify if Yes): No Relevant Social History: Tobacco Use (Former smoker) Present Medications: see Short Stay Collaborative assessment Medical History: Significant History (Obesity (BMI 30-39.9) GERD (gastroesophageal reflux disease) Anxiety Insomnia Lumbar spondylosis Mixed hyperlipidemia Morbid obesity with BMI of 40.0-44.9, adult) History of Previous Operations: Relevant previous surgery/procedure and date(s) (History of colonoscopy) Allergies: Allergies Allergy/AdvReac Type Severity Reaction Status Date / Time No Known Allergies Allergy Verified 10/15/24 08:50 Review of Systems Sugical H&P ROS: Negative: Constitution, Cardiovascular, Respiratory and Gastrointestinal Exam Surgical H&P Exam: Normal: Heart, Normal: Lungs, Normal: Extremities and Normal: Abdomen Plan Diagnosis/Plan: Change (proceed with colonoscopy) I have reviewed the history and physical and performed a pertinent physical examination on my patient. No changes have occurred unless specified. Time Spent With Patient Time: Total time managing care of this patient today ____ minutes.
[2025-03-06 07:41] VITALS: BP 111/68; PULSE 74; RESP 16; TEMP 36.6; O2SAT 98; BMI 40.4
[2025-03-06] MEDS: Lactated Ringers 1,000 ML 100 ML IVCONT (07:57)
--- NOTE | 2025-03-06 09:46 | HO.OPN-COLON ---
Colonoscopy Operative Note Operative Note Date of Service: 03/06/25 Narrative: COLONOSCOPY TILL CECUM WITH SNARE POLYPECTOMY, SUBMUCOSAL INJECTION AND HEMOCLIP PLACEMENT Pre-op diagnosis: Surveillance for colon polyps. Post-op diagnosis:? Colon polyps, Diverticulosis, hemorrhoids Endoscopist:? Bulmaro Soares MD Anesthesia:?MAC Consent: Indications for the procedure and potential complications of bleeding, perforation, reaction to medications and missed diagnosis were discussed with the patient and informed consent was obtained. Instrument: Olympus CF H 190 L variable stiffness adult colonoscope Monitoring: Vital signs and clinical assessment, intermittent blood pressure monitoring, continuous EKG monitoring, Pulse oximetry and Carbon Dioxide monitoring were done throughout the procedure. Please see anesthesia flowsheet. Colon withdrawl time was 22 minutes. Procedure: The patient was placed in the left lateral decubitis position and pre-procedure medications were administered. After a digital rectal examination of the ano-rectum, the video colonoscope was inserted into the rectum and advanced through the colon to the cecum. The colonoscope was slowly withdrawn in a retrograde panoramic fashion and the colon mucosa was carefully examined including a retroflexed view of the rectum. Findings and interventions are described below. Procedure Difficulty: Colon was long and tortuous and there was some loop formation and lack of scope Patient was placed in the supine position and LLQ pressure was applied to intubate the ascending colon The cecum with difficulty. Findings: Terminal Ileum: Not evaluated Cecum: Polypectomy site visualized without recurrent/residual polyp Ascending Colon: A 15 mm sessile polyp in mid AC at 125 cms. Polyp was raised with 3 cc of Eleview and removed with a stiff hot snare. Polypectomy site was closed with 1 hemoclip and marked with [place] ink Transverse Colon: A 10 - 12 mm sessile polyp - removed with a hot snare Descending Colon: Normal Sigmoid Colon: Moderate diverticulosis Rectum: Normal Ano-rectum: Moderate internal hemorrhoids, hypertrophied anal papilla and perianal skin tags Colon preparation: Good after copious irrigation. Maxwell Bowel Preparation Scale Right colon; 2 Transverse colon: 2 Left colon; 2 (0 = Unprepared colon segment with mucosa not seen due to solid stool that cannot be cleared. 1 = Portion of mucosa of the colon segment seen, but other areas of the colon segment not well seen due to staining, residual stool and/or opaque liquid. 2 = Minor amount of residual staining, small fragments of stool and/or opaque liquid, but mucosa of colon segment seen well. 3 = Entire mucosa of colon segment seen well with no residual staining, small fragments of stool or opaque liquid) Impression and Post Procedure Diagnosis: Colonoscopy Findings: Two medium sized polyps were removed Moderate diverticulosis seen in the sigmoid colon Moderate hemorrhoids on retroflexed exam. Plan: I will send a letter with biopsy results. Repeat Colonoscopy in 3 years if polyps are adenomatous and 10 year if polyps are hyperplastic. Above findings were reviewed with the patient and relevant handouts were given and the discharge area.
[2025-03-06 09:47] VITALS: BP 114/65; PULSE 57; RESP 16; TEMP 36.2; O2SAT 96
[2025-03-06 10:02] VITALS: BP 107/67; PULSE 62; RESP 16; TEMP 36.6; O2SAT 99
== END 2025-03-06 10:46 | disposition home or self-care (01) ==
PROVIDERS: PCP Internal Medicine; Visit Provider Internal Medicine Gastroenterology
PROC: 0DJD8ZZ Inspection of Lower Intestinal Tract, Via Natural or Artificial Opening Endoscopic (ICD-10-PCS; CPT 45378; principal; 2025-03-06 08:30)
DX: Z12.11 Encounter for screening for malignant neoplasm of colon (principal); Z86.0101 Personal history of adenomatous and serrated colon polyps; K63.5 Polyp of colon; K51.40 Inflammatory polyps of colon without complications; K57.30 Diverticulosis of large intestine without perforation or abscess without bleeding; K64.8 Other hemorrhoids; K64.4 Residual hemorrhoidal skin tags; K62.89 Other specified diseases of anus and rectum; K21.9 Gastro-esophageal reflux disease without esophagitis; I10 Essential (primary) hypertension; E78.2 Mixed hyperlipidemia; E55.9 Vitamin D deficiency, unspecified; R73.01 Impaired fasting glucose; G47.33 Obstructive sleep apnea (adult) (pediatric); G47.00 Insomnia, unspecified; E66.01 Morbid (severe) obesity due to excess calories; Z68.41 Body mass index [BMI] 40.0-44.9, adult; F41.9 Anxiety disorder, unspecified; Z79.899 Other long term (current) drug therapy; Z87.891 Personal history of nicotine dependence
CPT/HCPCS: 45385; 45381; 88305; J2003; J2250; J2704

== ENCOUNTER → 2025-03-06 07:27 | Outpatient (BNV) | payer OTHER, SELFPAY | PROVIDERS: PCP Internal Medicine; Visit Provider Internal Medicine Gastroenterology | DX: Z12.11 Encounter for screening for malignant neoplasm of colon (principal); D12.2 Benign neoplasm of ascending colon; D12.3 Benign neoplasm of transverse colon; K64.8 Other hemorrhoids; K64.4 Residual hemorrhoidal skin tags | CPT/HCPCS: 45381; 45385 ==